=== PATIENT | female | born 1980 | race Caucasian/White ===

== ENCOUNTER → 2019-11-11 15:18 | Outpatient (BNVA) | payer OTHER, SELFPAY | PROVIDERS: PCP Internal Medicine; Referring Provider Internal Medicine; Visit Provider Physician Assistant | DX: K21.9 Gastro-esophageal reflux disease without esophagitis (principal); F12.90 Cannabis use, unspecified, uncomplicated; Z79.899 Other long term (current) drug therapy | CPT/HCPCS: Q3014 ==

== ENCOUNTER → 2019-12-06 15:15 | Outpatient (BNVA) | payer OTHER, SELFPAY | PROVIDERS: PCP Internal Medicine; Referring Provider Internal Medicine; Visit Provider Internal Medicine | DX: Z76.89 Persons encountering health services in other specified circumstances (principal) ==

== ENCOUNTER 2019-12-07 08:05 | Outpatient (REF) | payer OTHER, SELFPAY ==
[2019-12-07 09:56] LABS: MANUAL DIFF FLAG NO
[2019-12-07 10:09] LABS: Basophils Percent Auto 0.3 % (0-2); Eosinophils Absolute Auto 0.1 X10*3/uL (0.0-0.4); Eosinophils Percent Auto 1.5 % (0-4); Hematocrit 38.3 % (37-47); Hemoglobin 13.3 g/dl (12.0-16.0); Imm Gran Abs Auto 0.02 X10*3/uL (0.00-0.03); Imm Gran Pct Auto 0.3 % (0.0-0.4); Lymphocytes Absolute Auto 1.2 X10*3/uL (1.2-4.9); Lymphocytes Percent Auto 20.6 % (20-40); Mean Corpuscular HGB Conc 34.7 g/dl (31.0-35.0); Mean Corpuscular Hemoglobin 30.3 pg (27.0-33.0); Mean Corpuscular Volume 87.2 fL (80-98); Mean Platelet Volume 10.4 fL (9.4-12.3); Monocytes Absolute Auto 0.4 X10*3/uL (0.1-1.2); Neutrophils Absolute Auto 4.3 X10*3/uL (2.0-8.3); Neutrophils Percent Auto 71.3 % (45-73); Platelet Count 188 X10*3/uL (160-400); Red Blood Count 4.39 X10*6/uL (4.20-5.50); Red Cell Distribution Width 12.3 % (11.0-16.0)
[2019-12-07 10:34] LABS: Alanine Aminotransferase 9 U/L (0-31); Albumin Level 4.5 g/dL (3.5-5.0); Alkaline Phosphatase 40 U/L (39-117); Anion Gap 12 (12-20); Aspartate Amino Transferase 12 U/L (5-31); Bilirubin Total 0.6 mg/dL (0.0-1.0); Blood Urea Nitrogen 13 mg/dL (9-16); Carbon Dioxide 27 mmol/L (22-29); Chloride 105 mmol/L (96-108); Cholesterol 151 mg/dL; Estimated Glomerular Filt Rate > 60; Glucose Fasting 98 mg/dL (60-99); HDL Cholesterol 37 mg/dL; LDL Cholesterol Calculated 55 mg/dl; Potassium 4.3 mmol/l (3.3-5.1); Sodium 140 mmol/L (135-145); Total Protein 6.9 g/dL (6.5-8.0); Triglycerides 295 mg/dL
[2019-12-07 10:36] LABS: Calcium 8.9 mg/dL (8.4-10.2)
[2019-12-07 10:55] LABS: T4 Thyroxine 7.7 ug/dL (4.5-12.0); Thyroid Stimulating Hormone 0.65 mIU/mL (0.32-4.0)
[2019-12-07 11:12] LABS: Folate 13.4 ng/mL (> or = 4.0); Vitamin B12 255 pg/mL (200-900)
[2019-12-15 18:17] LABS: HPV mRNA E6/E7 rflx Not Detected (Not Detected)
== END 2019-12-07 08:06 | disposition home or self-care (01) ==
LOC: HO.LAB 08:05
PROVIDERS: Absent Provider Internal Medicine; PCP Internal Medicine; Referring Provider Internal Medicine; Visit Provider Advanced Practice Midwife
DX: Z01.419 Encounter for gynecological examination (general) (routine) without abnormal findings (principal); E28.2 Polycystic ovarian syndrome
CPT/HCPCS: 36415; 80053; 80061; 82607; 82746; 84436; 84443; 85025; 87624; 87625; 88141; 88142

== ENCOUNTER → 2020-01-31 12:25 | Outpatient (BNVA) | payer OTHER, SELFPAY | PROVIDERS: Visit Provider Physician Assistant | DX: Z76.89 Persons encountering health services in other specified circumstances (principal) ==

== ENCOUNTER 2020-04-15 08:25 | Outpatient (REF) | payer OTHER, SELFPAY ==
--- NOTE | ~2020-04-15 | MM_ITS ---
EXAMINATION: MM SCREENING DIGITAL BREAST TOMOSYNTHESIS, BILATERAL CLINICAL INFORMATION: Screening. Asymptomatic. Age 39. No prior breast imaging. No known family history breast cancer. The lifetime risk of breast cancer based on the Tyrer-Cuzick Model is 11%. COMPARISON: None (current study represents initial baseline exam). TECHNIQUE: Digital breast tomosynthesis is performed in both the craniocaudal and mediolateral oblique views along with computer-aided detection (CAD). Synthesized 2D images are generated from the tomosynthesis. FINDINGS: There are scattered areas of fibroglandular density (ACR BI-RADS breast composition Category b). There are no significant masses, abnormal calcifications, or other abnormalities. The axilla and skin contours are unremarkable. MM/MM tomosynthesis screening BI IMPRESSION: No mammographic evidence of malignancy. ASSESSMENT: BI-RADS 1: Negative RECOMMENDATION: Routine annual mammography screening. This patient's information was entered into a reminder system with a target due date for their next mammogram.
== END 2020-04-15 08:26 | disposition home or self-care (01) ==
LOC: HO.MAMMO 08:25
PROVIDERS: Visit Provider Internal Medicine
DX: Z12.31 Encounter for screening mammogram for malignant neoplasm of breast (principal)
CPT/HCPCS: 77063; 77067

== ENCOUNTER → 2020-08-22 08:14 | Outpatient (BNVA) | payer OTHER, SELFPAY | PROVIDERS: Visit Provider Physician Assistant ==

== ENCOUNTER 2020-09-24 16:02 | Emergency (ER) | payer OTHER, SELFPAY ==
--- NOTE | ~2020-09-24 | XR_ITS ---
EXAMINATION: XR FOOT, RIGHT CLINICAL INFORMATION: Contusion to foot and lower ankle. COMPARISON: None TECHNIQUE: AP, lateral, and oblique views of the right foot. A marker has been placed along the anterior mid foot region where patient feels pain. FINDINGS: The bones and soft tissues are normal. No fracture. Alignment is anatomic. Joint spaces are maintained. There is a small retrocalcaneal enthesophyte. XR/XR foot RT min 3V IMPRESSION: Unremarkable right foot except for a small retrocalcaneal enthesophyte.
[2020-09-24 16:05] VITALS: BP 97/76; PULSE 88; RESP 18; TEMP 36.8; O2SAT 97; BMI 32.5
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
== END 2020-09-24 19:17 | disposition home or self-care (01) ==
PROVIDERS: Emergency Provider Emergency Medicine; PCP Internal Medicine
DX: S90.31XA Contusion of right foot, initial encounter (principal); M79.671 Pain in right foot; Y29.XXXA Contact with blunt object, undetermined intent, initial encounter; Y93.9 Activity, unspecified; Y92.9 Unspecified place or not applicable; Y99.9 Unspecified external cause status; Z79.899 Other long term (current) drug therapy
CPT/HCPCS: 73630; 99283

== ENCOUNTER 2021-01-18 09:00 | Day surgery (SDC) | payer OTHER, SELFPAY ==
[2021-01-11 16:04] VITALS: BMI 33.6
--- NOTE | 2021-01-17 10:11 | HO.ANESPROP2 ---
Documented by User: Mellisa Chance NP 01/17/21 10:12 HPI - Anesthesia Eval Consult details Narrative: 40yo F for Colonoscopy PMFSH Active Problems Active Problems: All Active Problems (Updated 01/11/21 @ 16:02 by Marielle Das RN) Annual physical exam (Acute) Hypertriglyceridemia (Acute) Vitamin B12 deficiency (Acute) History of adenomatous polyp of colon (Acute) Obesity (BMI 30-39.9) (Acute) GERD (gastroesophageal reflux disease) (Acute) PCOS (polycystic ovarian syndrome) (Acute) SVT (supraventricular tachycardia) (Acute) Past Medical History Medical History Asthma, allergic Duodenal adenoma Familial adenomatous polyposis GERD (gastroesophageal reflux disease) Migraine with aura Obesity Obesity (BMI 30-39.9) PCOS (polycystic ovarian syndrome) Polyp of duodenum Post-operative nausea and vomiting Splenomegaly SVT (supraventricular tachycardia) Trochanteric bursitis of left hip Uterine fibroid Family History Family History (Updated 08/22/20 @ 08:17 by SARITHA Landis) Father Brain tumor Mother Colon polyp Maternal Uncle Colon polyp Maternal Aunt Colon polyp Myocardial infarct Substance abuse Pancreatitis Father No problems noted. Son No problems noted. Daughter No problems noted. Surgical History Surgical History History of delivery History of colonoscopy Hx of endoscopy Social History Social History (Updated 08/22/20 @ 09:47 by Delmis Salinas PA-C) Alcohol intake: current Alcohol intake frequency: a few times a month Patient Tobacco Use Status: Never used Tobacco Use of substances other than those prescribed or required for medical reasons: No Substance Use Type: Marijuana Are you DNR?: No Advance Directives: No Advance Directives Information Provided: No Advance Directives on File: No Recently lost weight without trying: No Nutrition Risks: No Nutritional Risk Patient : No Current occupational status: 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 Gender identity: Female Meds Allergies Allergy/AdvReac Type Severity Reaction Status Date / Time amoxicillin [AMOXICILLIN] Allergy Severe HIVES Verified 08/22/20 08:15 doxycycline Allergy Unknown Rash Verified 08/22/20 08:15 Home Medications Medication Instructions Recorded Confirmed Last Taken Type cetirizine 10 mg tablet (Zyrtec) 10 mg PO DAILY 12/06/19 01/11/21 Unknown History lansoprazole 30 mg capsule,delayed 30 mg PO DAILY 01/11/21 01/11/21 Unknown History release sucralfate 1 gram tablet 1 g PO BID PRN 01/11/21 01/11/21 Unknown History Exam Exam Date and Time: January 17, 2021 1011 Height,Weight and Vital Signs: Height 5 ft 3 in Weight 86.183 kg Assessment and Plan Assessment Anesthesia Assessment: Chart Reviewed Documented by User: Albert Gifford 01/18/21 09:37 [facility] Past Medical History Medical History Asthma, allergic Duodenal adenoma Familial adenomatous polyposis GERD (gastroesophageal reflux disease) Migraine with aura Obesity Obesity (BMI 30-39.9) PCOS (polycystic ovarian syndrome) Polyp of duodenum Post-operative nausea and vomiting Splenomegaly SVT (supraventricular tachycardia) Trochanteric bursitis of left hip Uterine fibroid Functional capacity: independent ambulation Family History Family History (Updated 08/22/20 @ 08:17 by SARITHA Landis) Father Brain tumor Mother Colon polyp Maternal Uncle Colon polyp Maternal Aunt Colon polyp Myocardial infarct Substance abuse Pancreatitis Father No problems noted. Son No problems noted. Daughter No problems noted. Family history of problems with anesthesia: Yes (Ponv) Surgical History Surgical History History of delivery History of colonoscopy Hx of endoscopy History of Problems with Anesthesia: Yes (Ponv ) Social History Social History (Updated 08/22/20 @ 09:47 by Delmis Salinas PA-C) Alcohol intake: current Alcohol intake frequency: a few times a month Patient Tobacco Use Status: Never used Tobacco Use of substances other than those prescribed or required for medical reasons: No Substance Use Type: Marijuana Are you DNR?: No Advance Directives: No Advance Directives Information Provided: No Advance Directives on File: No Recently lost weight without trying: No Nutrition Risks: No Nutritional Risk Patient : No Current occupational status: 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 Gender identity: Female Meds Allergies Allergy/AdvReac Type Severity Reaction Status Date / Time amoxicillin [AMOXICILLIN] Allergy Severe HIVES Verified 08/22/20 08:15 doxycycline Allergy Unknown Rash Verified 08/22/20 08:15 Home Medications Medication Instructions Recorded Confirmed Last Taken Type cetirizine 10 mg tablet (Zyrtec) 10 mg PO DAILY 12/06/19 01/11/21 Unknown History lansoprazole 30 mg capsule,delayed 30 mg PO DAILY 01/11/21 01/11/21 Unknown History release sucralfate 1 gram tablet 1 g PO BID PRN 01/11/21 01/11/21 Unknown History Exam Airway Mallampati Class: III TM Dist: >3cm Neck ROM: Full Heart: rrr Lungs: bl breath sounds Assessment and Plan Final Anesthetic Review Family History of Problems with Anesthesia: Yes (Ponv) History of Problems with Anesthesia: Yes (Ponv ) NPO: Yes ASA Class: II Final Preanesthetic Review: Meds/Lucrecia Chart Reviewed Patient Risk: Intermediate Procedure Risk: Intermediate Anesthetic Plan Anesthetic Plan: MAC: Disposition: Standard PACU
--- NOTE | 2021-01-18 09:09 | MHC.SHP ---
Pre-Procedural Eval Section A Date of Service: 01/18/21 Section B Chief Complaint: hx of colonic polyps Relevant Family History (Specify if Yes): Yes Relevant Social History: Other (specify) (THC) Present Medications: see Short Stay Collaborative assessment Medical History: Significant History (Asthma, allergic Duodenal adenoma Familial adenomatous polyposis GERD (gastroesophageal reflux disease) Migraine with aura Obesity Obesity (BMI 30-39.9) PCOS (polycystic ovarian syndrome) Polyp of duodenum Post-operative nausea and vomiting Splenomegaly SVT (supraventricular tachycardia) Trochanteri) History of Previous Operations: Relevant previous surgery/procedure and date(s) (History of delivery History of colonoscopy Hx of endoscopy) Allergies: Allergies Allergy/AdvReac Type Severity Reaction Status Date / Time amoxicillin [AMOXICILLIN] Allergy Severe HIVES Verified 08/22/20 08:15 doxycycline Allergy Unknown Rash Verified 08/22/20 08:15 Review of Systems Sugical H&P ROS: Negative: Constitution, Cardiovascular, Respiratory, Neurological, Psychiatric, Hem-Onc, Allergic/Immunologic, Gastrointestinal, Genitourinary, Musculoskeletal, Integumentary, Endocrine and Eyes/Ears/Nose/Throat Exam Surgical H&P Exam: Normal: HEENT, Normal: Heart, Normal: Lungs, Normal: Extremities, Normal: Abdomen, Normal: Skin and Normal: Neurological Plan Diagnosis/Plan: Unchanged I have reviewed the history and physical and performed a pertinent physical examination on my patient. No changes have occurred unless specified.
[2021-01-18 09:32] VITALS: BP 125/77; PULSE 82; RESP 16; TEMP 36.1; O2SAT 96
[2021-01-18] MEDS: Lactated Ringers 1,000 ML 100 ML IVCONT (09:37)
--- NOTE | 2021-01-18 09:48 | P.BOP_ITS ---
Brief Operative Note Date of Service: 01/18/21 Pre-op diagnosis: hx of polyps Post-op diagnosis: same Procedure: see op note Surgeon: Valentin Rogers MD Anesthesia: MAC Was an Tray Drier Operator used for this Procedure?: No Estimated blood loss (mL): 0 Condition: stable Disposition: PACU
--- NOTE | 2021-01-18 09:48 | W.PM.OPN ---
Operative Note Operative Note Date of Service: 01/18/21 Narrative: Operative Information Procedure Description: Colonoscopy COLONOSCOPY Instrument: Olympus variable stiffness adult scope 190L Colonoscopy Monitoring: Vital signs and clinical assessment, continuous EKG monitoring, Pulse oximetry, Carbon Dioxide monitoring and blood pressure monitoring were done throughout the procedure. Colon withdrawal time was 13 minutes. Procedure: The patient was placed in the left lateral decubitis position and pre-procedure medications were administered. After a digital rectal examination of the ano-rectum, the video colonoscope was inserted into the rectum and advanced through the colon to the cecum/TI. The colonoscope was slowly withdrawn in a retrograde panoramic fashion and the colon mucosa was carefully examined including a retroflexed view of the rectum. Findings and interventions are described below. Procedure Difficulty: easy Findings: Terminal Ileum-normal Cecum: 7-8 mm sessile polyp removed with snare right sided retroflexion was normal Ascending Colon: normal Transverse Colon -normal Descending Colon:normal Sigmoid Colon: normal Rectum: Retroflexion with small internal hemorrhoids, grade I Anorectum - normal Colon preparation: [place] Bowel Preparation Scale Right colon; 2 Transverse colon: 2 Left colon; 2 (0 = Unprepared colon segment with mucosa not seen due to solid stool that cannot be cleared. 1 = Portion of mucosa of the colon segment seen, but other areas of the colon segment not well seen due to staining, residual stool and/or opaque liquid. 2 = Minor amount of residual staining, small fragments of stool and/or opaque liquid, but mucosa of colon segment seen well. 3 = Entire mucosa of colon segment seen well with no residual staining, small fragments of stool or opaque liquid) Impression and Post Procedure Diagnosis: polyp internal hemorrhoids Plan: High fiber diet leaflet Avoid straining at stool, epsom salts and sitz bath, anusol supps or cream Repeat Colonoscopy in 2-3 years due to higher risk with pos FH of polyps or earlier if clinically indicated, would repeat EGD same time due to hx of duodenal adenoma Above findings were reviewed with the patient and relevant handouts were provided if indicated.
[2021-01-18 09:52] LABS: UPreg QC Valid YES; Urine Pregnancy NEGATIVE (NEGATIVE)
[2021-01-18 10:31] VITALS: BP 108/62; PULSE 87; RESP 18; TEMP 36.6; O2SAT 97
[2021-01-18 10:46] VITALS: BP 106/60; PULSE 77; RESP 18; TEMP 36.9; O2SAT 99
== END 2021-01-18 11:25 | disposition home or self-care (01) ==
PROVIDERS: Nurse Practitioner; PCP Internal Medicine; Visit Provider Internal Medicine Gastroenterology
PROC: 0DJD8ZZ Inspection of Lower Intestinal Tract, Via Natural or Artificial Opening Endoscopic (ICD-10-PCS; CPT 45378; principal; 2021-01-18 10:10)
DX: Z12.11 Encounter for screening for malignant neoplasm of colon (principal); Z86.010 Personal history of colon polyps; Z83.71 Family history of colonic polyps; D12.0 Benign neoplasm of cecum; K64.0 First degree hemorrhoids; K21.9 Gastro-esophageal reflux disease without esophagitis; E66.9 Obesity, unspecified; I47.1 Supraventricular tachycardia; J45.909 Unspecified asthma, uncomplicated; Z79.899 Other long term (current) drug therapy; Z88.0 Allergy status to penicillin; Z88.1 Allergy status to other antibiotic agents
CPT/HCPCS: 45385; 81025; 88305

== ENCOUNTER 2021-05-03 09:27 | Outpatient (REF) | payer OTHER, SELFPAY ==
[2021-05-03 16:37] LABS: MANUAL DIFF FLAG NO
[2021-05-03 16:57] LABS: Basophils Percent Auto 0.3 % (0-2); Eosinophils Absolute Auto 0.1 X10*3/uL (0.0-0.4); Hematocrit 36.6 % (37.0-47.0); Hemoglobin 12.4 g/dl (12.0-16.0); Imm Gran Abs Auto 0.01 X10*3/uL (0.00-0.03); Imm Gran Pct Auto 0.1 % (0.0-0.4); Lymphocytes Absolute Auto 1.7 X10*3/uL (1.2-4.9); Lymphocytes Percent Auto 24.2 % (20-40); Mean Corpuscular HGB Conc 33.9 g/dl (31.0-35.0); Mean Corpuscular Hemoglobin 28.6 pg (27.0-33.0); Mean Corpuscular Volume 84.3 fL (80.0-98.0); Mean Platelet Volume 10.3 fL (9.4-12.3); Monocytes Absolute Auto 0.5 X10*3/uL (0.1-1.2); Monocytes Percent Auto 6.5 % (2-11); Neutrophils Absolute Auto 4.8 x10*3/uL (2.0-8.3); Neutrophils Percent Auto 67.9 % (45-73); Platelet Count 194 X10*3/uL (160-400); Red Blood Count 4.34 X10*6/uL (4.20-5.50); Red Cell Distribution Width 13.4 % (11.0-16.0)
[2021-05-03 17:34] LABS: Alanine Aminotransferase 9 U/L (0-31); Albumin Level 4.6 g/dL (3.5-5.0); Alkaline Phosphatase 43 U/L (39-117); Anion Gap 14 (12-20); Aspartate Amino Transferase 13 U/L (5-31); Bilirubin Total 0.5 mg/dL (0.0-1.0); Blood Urea Nitrogen 11 mg/dL (9-16); Calcium 9.9 mg/dL (8.4-10.2); Carbon Dioxide 24 mmol/L (22-29); Chloride 104 mmol/L (96-108); Cholesterol 149 mg/dL; Estimated Glomerular Filt Rate > 60; Glucose Random 95 mg/dL (60-115); HDL Cholesterol 38 mg/dL; LDL Cholesterol Calculated 46 mg/dl; Potassium 4.2 mmol/L (3.3-5.1); Sodium 138 mmol/L (135-145); Total Protein 7.3 g/dL (6.5-8.0); Triglycerides 329 mg/dL
[2021-05-03 17:49] LABS: Free T4 (Free Thyroxine) 1.01 ng/dL (0.71-1.85); Vitamin D 25-OH Total 33.1 ng/mL (>30)
[2021-05-03 17:54] LABS: Thyroid Stimulating Hormone 0.99 uIU/mL (0.32-4.0)
[2021-05-03 18:05] LABS: Vitamin B12 1097 pg/mL (200-900)
[2021-05-03 21:42] LABS: CT PCR NOT DETECTED (Not Detect.); NG PCR NOT DETECTED (Not Detect.)
[2021-05-04 09:00] LABS: BV Int Neg Control Negative (Negative); BV Int Pos Control Positive (Positive)
[2021-05-08 14:52] LABS: Parietal Cell Antibody <=20.0 Unit (<=20.0)
[2021-05-09 23:26] LABS: Intrinsic Factor Antibodies Negative (Negative)
== END 2021-05-03 09:28 | disposition home or self-care (01) ==
LOC: HO.LAB 09:27
PROVIDERS: Internal Medicine; Visit Provider Advanced Practice Midwife
DX: N93.9 Abnormal uterine and vaginal bleeding, unspecified (principal); N92.1 Excessive and frequent menstruation with irregular cycle; E78.1 Pure hyperglyceridemia; E78.00 Pure hypercholesterolemia, unspecified
CPT/HCPCS: 36415; 80053; 80061; 82306; 82607; 82746; 83516; 84439; 84443; 85025; 86340; 87480; 87491; 87510; 87591; 87660

== ENCOUNTER 2021-05-03 09:43 | Outpatient (REF) | payer OTHER, SELFPAY ==
--- NOTE | ~2021-05-03 | MM_ITS ---
EXAMINATION: MM SCREENING DIGITAL BREAST TOMOSYNTHESIS, BILATERAL CLINICAL INFORMATION: Screening. Asymptomatic. The lifetime risk of breast cancer based on the Tyrer-Cuzick Model is 10.6%. COMPARISON: Mammography: April 15, 2020 TECHNIQUE: Digital breast tomosynthesis is performed in both the craniocaudal and mediolateral oblique views along with computer-aided detection (CAD). Synthesized 2D images are generated from the tomosynthesis. FINDINGS: There are scattered areas of fibroglandular density (ACR BI-RADS breast composition Category b). There are no significant masses, abnormal calcifications, or other abnormalities. MM/MM tomosynthesis screening BI IMPRESSION: There are no significant changes from prior study. ASSESSMENT: BI-RADS 1: Negative RECOMMENDATION: Routine annual mammography screening. This patient's information was entered into a reminder system with a target due date for their next mammogram.
== END 2021-05-03 09:44 | disposition home or self-care (01) ==
LOC: HO.MAMMO 09:43
PROVIDERS: Absent Provider Advanced Practice Midwife; PCP Internal Medicine; Visit Provider Internal Medicine
DX: Z12.31 Encounter for screening mammogram for malignant neoplasm of breast (principal); N93.9 Abnormal uterine and vaginal bleeding, unspecified
CPT/HCPCS: 77063; 77067; 81025

== ENCOUNTER 2021-05-24 15:53 | Outpatient (REF) | payer OTHER, SELFPAY ==
--- NOTE | ~2021-05-24 | US_ITS ---
EXAMINATION: US PELVIS CLINICAL INFORMATION: Abnormal uterine and vaginal bleeding COMPARISON: CT of the abdomen and pelvis 09/22/2019 and pelvic ultrasound 08/28/2015 TECHNIQUE: Ultrasound of the pelvis is performed using both transabdominal and transvaginal transducers along with Doppler. Transvaginal imaging is performed due to inadequate visualization transabdominally. FINDINGS: Uterus: The uterus is retroverted and measures 9.1 x 4.7 x 6.5 cm. The double wall endometrial thickness is 9 mm. The uterus is smooth in contour and has normal myometrial echogenicity. No visible fibroid. Adnexa: Both ovaries are visualized. There is normal color flow to the adnexa. There is no ovarian torsion. There is no pelvic ascites or fluid collection. Right ovary measures 3.6 x 2.6 x 3.1 cm. There is a dominant follicle in the right ovary measuring up to 1.8 cm. Left ovary measures 2.9 x 1.9 x 2 cm. US/US pelvic and transvaginal IMPRESSION: Normal pelvic ultrasound.
== END 2021-05-24 15:54 | disposition home or self-care (01) ==
LOC: HO.US 15:53
PROVIDERS: Visit Provider Advanced Practice Midwife
DX: N93.9 Abnormal uterine and vaginal bleeding, unspecified (principal)
CPT/HCPCS: 76830; 76856

== ENCOUNTER → 2021-06-01 14:54 | Outpatient (BNVA) | payer OTHER, SELFPAY | PROVIDERS: Visit Provider Advanced Practice Midwife | DX: Z13.89 Encounter for screening for other disorder (principal) ==

== ENCOUNTER 2022-08-21 12:57 | Outpatient (AMB) | payer OTHER, SELFPAY ==
--- NOTE | 2022-08-21 12:58 | MHC.OFFVIS ---
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 Scribed for KAMINI Lamb by Maliha De La Paz vp medical, on 08/21/2022 at 1:22 pm EST. Measurement And Verification Engineer: Measurement And Verification Engineer Present ([place]) Allergies amoxicillin [AMOXICILLIN] Allergy (Severe, Verified 08/21/22 12:59) HIVES doxycycline Allergy (Unknown, Verified 08/21/22 12:59) Rash Is last menstrual period known: Yes Last menstrual period: 07/29/22 HPI HPI Comments History of Present Illness Details She is presenting for annual exam. States she spotting on occasion during ovulation. Patient admits she tries to eat a healthy diet including Calcium and Vitamin D. She stays active with exercise. Currently sexually active. Denies vaginal itching and irritation. Denies family hx of breast, colon and ovarian cancer. Last pap smear 12/07/19 Last mammogram 05/03/21 UTD on colonoscopy. [facility] Medical History Asthma, allergic Duodenal adenoma Familial adenomatous polyposis GERD (gastroesophageal reflux disease) Migraine with aura Obesity Obesity (BMI 30-39.9) PCOS (polycystic ovarian syndrome) Polyp of duodenum Post-operative nausea and vomiting Splenomegaly SVT (supraventricular tachycardia) Trochanteric bursitis of left hip Surgical History History of delivery History of colonoscopy Hx of endoscopy Family History Father Brain tumor Mother Colon polyp Maternal Uncle Colon polyp Maternal Aunt Colon polyp Myocardial infarct Substance abuse Pancreatitis Father No problems noted. Son No problems noted. Daughter No problems noted. 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 Sexual orientation: Straight/Heterosexual Gender identity: Female Cognitive needs: No Hearing needs: No Vision needs: No Female Reproductive History Menstrual Age of Menarche: 12 Duration of menses: 6-7 days Date of last menstrual period: 07/29/22 control method: permanent sterilization Permanent Sterilization: Vasectomy Total pregnancies: 2 Full term: 2 Number of Living Children: 2 Date of last pap smear: 12/07/19 (neg pap and hpv) Date of Mammogram: 05/03/21 Physical Exam Vital Signs: Last Vital Signs BP 120/76 08/21/22 12:59 BMI result Body Mass Index 35.4 Const General: cooperative, healthy appearing, no acute distress, well developed and alert Orientation/consciousness: patient oriented x3 HEENT Head: Yes normal to inspection Eyes General: appearance normal, both eyes and all related structures Neck Neck: Yes normal visual inspection Thyroid: Thyroid normal Chest Chest palpation & inspection: normal inspection of the chest Breast/axilla inspection: normal inspection of the breasts (no puckering, dimpling, peau de orange, retraction, discharge, masses) Breast/axilla palpation: normal palpation of the breasts Resp Effort & Inspection: normal respiratory effort GI Inspection: Yes normal to inspection Palpation (GI): Soft to palpation (to palpation) Rectal Exam - Female: deferred General: Yes bladder normal to inspection External Female Exam: normal external appearance and normal appearance of the urethra Speculum Exam - Vagina: normal appearance of the vagina, normal palpation and normal vaginal discharge Speculum Exam - Cervix: normal appearance of the cervix and normal palpation Bimanual exam- vagina & uterus: normal palpation and normal palpation Bimanual Exam- Adnexa, other: normal adnexae and no masses Skin General skin exam: no rashes or lesions noted Neuro General: patient oriented x3 Cognition (Neuro): normal cognition Extrem General: Yes normal to inspection Psych Attitude: cooperative Thought process: Normal thought process present Thought content: Normal thought content present Assessment & Plan Assessment & Plan (1) Encounter for well woman exam: Code(s): Z01.419 - Encounter for gynecological examination (general) (routine) without abnormal findings Plan: Discussed: Current recommendations for pap smears per ASCCP guidelines Breast awareness and periodic self breast exams. Maintaining a healthy lifestyle including a well balanced diet and routine exercise. Mammogram ordered. Counseled re: perimenopause vs menopause. Monitor periods, report any unscheduled bleeding, bleeding episodes less than 21 days apart or heavy prolonged menstrual bleeding. All of her questions and concerns were addressed to the best of my ability. RTO in one year for AG. Orders: Orders MM tomosynthesis screening BI Today Z12.31 - Encounter for screening mammogram for malignant neoplasm of breast Coding Level of Care Code Est Pt Prev Care 40-64y(64874) Diagnoses Encounter for well woman exam Z01.419
[2022-08-21 12:59] VITALS: BP 120/76; BMI 35.4
== END 2022-08-21 14:13 | disposition home or self-care (01) ==
LOC: HO.HWS 12:57
PROVIDERS: PCP Internal Medicine; Visit Provider Advanced Practice Midwife
DX: Z01.419 Encounter for gynecological examination (general) (routine) without abnormal findings (principal)
CPT/HCPCS: 99396

== ENCOUNTER → 2022-08-21 12:57 | Outpatient (BNVA) | payer OTHER, SELFPAY | PROVIDERS: PCP Internal Medicine; Visit Provider Advanced Practice Midwife ==

== ENCOUNTER 2022-08-26 15:46 | Outpatient (REF) | payer OTHER, SELFPAY ==
--- NOTE | ~2022-08-26 | MM_ITS ---
EXAMINATION: MM SCREENING DIGITAL BREAST TOMOSYNTHESIS, BILATERAL CLINICAL INFORMATION: Screening. Asymptomatic. The lifetime risk of breast cancer based on the Tyrer-Cuzick Model is 11%. COMPARISON: Mammography: This study is compared with prior exams dating back to 2020. TECHNIQUE: Digital breast tomosynthesis is performed in both the craniocaudal and mediolateral oblique views along with computer-aided detection (CAD). Synthesized 2D images are generated from the tomosynthesis. FINDINGS: There are scattered areas of fibroglandular density (ACR BI-RADS breast composition Category b). There are no significant masses, abnormal calcifications, or other abnormalities. MM/MM tomosynthesis screening BI IMPRESSION: No mammographic evidence of malignancy. ASSESSMENT: BI-RADS BI-RADS 1 - Negative RECOMMENDATION: Routine annual mammography screening. 1 year F/U This examination should not preclude the clinical evaluation of a suspicious palpable abnormality. This patient's information was entered into a reminder system with a target due date for their next mammogram.
== END 2022-08-26 15:47 | disposition home or self-care (01) ==
LOC: HO.MAMMO 15:46
PROVIDERS: PCP Internal Medicine; Visit Provider Advanced Practice Midwife
DX: Z12.31 Encounter for screening mammogram for malignant neoplasm of breast (principal)
CPT/HCPCS: 77063; 77067

== ENCOUNTER → 2022-08-26 16:00 | Outpatient (BNV) | payer OTHER, SELFPAY | PROVIDERS: PCP Internal Medicine; Visit Provider Radiology Diagnostic Radiology | DX: Z12.31 Encounter for screening mammogram for malignant neoplasm of breast (principal) | CPT/HCPCS: 77063; 77067 ==

== ENCOUNTER 2022-10-30 16:10 | Outpatient (AMB) | payer OTHER, SELFPAY ==
--- NOTE | 2022-10-30 16:21 | MHC.PC.OV ---
Vital Signs 10/30/22 16:24 Height 5 ft 3 in Weight 198 lb BMI 35.1 BP 110/82 Blood Pressure Location Lt brachial Position Sitting Pulse 82 Pulse Source Pulse Oximeter Temp Source Skin Pulse Oximetry (%) 98 Oxygen Delivery Method Room Air Intake Visit Reasons: Annual Exam Allergies amoxicillin [AMOXICILLIN] Allergy (Severe, Verified 10/30/22 16:45) HIVES doxycycline Allergy (Unknown, Verified 10/30/22 16:45) Rash Medication List - Last Reconciled 10/30/22 by RITA Cortes cyanocobalamin (vitamin B-12) 1,000 mcg PO DAILY lansoprazole 30 mg PO DAILY loratadine (Claritin) 10 mg PO DAILY metoprolol succinate ER 25 mg PO DAILY 90 days scopolamine base (Transderm-Scop) 1 patch transdermal Q3D PRN Tobacco use date assessed: 10/30/22 Dental Screening Dental Screen Date: 10/30/22 Did you have a dental visit in the last 12 months?: Yes Did you have a dental problem in the last 6 months where you did not have access to dental care?: No Was dental information given to patient?: Patient has dentist HPI Annual Exam HPI Details Patient is a 41-year-old female who presents today for physical exam. Patient of Dr. Paige. Medical history significant for SVT-on metoprolol, PCOS, GERD, obesity, hypertriglyceridemia. Pap smear normal 11/2021 with [facility]. Mammogram normal 08/2022. Up-to-date with tetanus. Colonoscopy 01/2021 which showed tubular adenoma repeat in 3 years, was done by Dr. Rogers. Patient reports that she had cold, she reports runny nose, she was sneezing and her lungs hurt, negative COVID test, reports congestion. Reports sinuses pain. No shortness of breath or cough. Has allergic asthma. Help is not needed with alcohol cessation. [facility] Medical History (Updated 10/30/22 @ 16:58 by RITA Cortes) Asthma, allergic Post-operative nausea and vomiting Duodenal adenoma Obesity (BMI 30-39.9) Trochanteric bursitis of left hip GERD (gastroesophageal reflux disease) Familial adenomatous polyposis Splenomegaly Migraine with aura PCOS (polycystic ovarian syndrome) Polyp of duodenum Obesity SVT (supraventricular tachycardia) Surgical History History of delivery Hx of endoscopy History of colonoscopy Family History Father Brain tumor Mother Colon polyp Maternal Uncle Colon polyp Maternal Aunt Colon polyp Myocardial infarct Substance abuse Pancreatitis Father No problems noted. Son No problems noted. Daughter No problems noted. 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 1. Little interest or pleasure in doing things: not at all 2. Feeling down, depressed, or hopeless: not at all 3. Trouble falling or staying asleep, or sleeping too much: not at all 4. Feeling tired or having little energy: not at all 5. Poor appetite or overeating: not at all 6. Feeling bad about yourself - or that you are a failure or have let yourself or your family down: not at all 7. Trouble concentrating on things, such as reading the newspaper or watching television: not at all 8. Moving or speaking so slowly that other people could have noticed. Or the opposite - being so fidgety or restless that you have been moving around a lot more than usual: not at all 9. Thoughts that you would be better off or of hurting yourself in some way: not at all Total score: 0 Depression Screening Interpretation: Negative 43612 - PHQ-9 Billing: Yes Source: Developed by Drs. Javier Fontenot, Sarah Church, Jeffrey Ortiz and colleagues, with an educational surekha from [employer]. Thrive Questionnaire Date Thrive assessed: 07/02/21 AUDIT C Alcohol Use Questionnaire (AUDIT-C) 1. How often do you have a drink containing alcohol?: 2-3 times a week 2. How many drinks containing alcohol do you have on a typical day when you are drinking?: 3 or 4 3. How often do you have six or more drinks on one occasion?: Never Total Score: 4 Score Reviewed/Action Taken: Yes TI-7 AMB Questionnaire TI-7 Date TI - 7 assessed: 10/30/22 Feeling nervous, anxious, or on edge: 0 = Not at all Not being able to stop or control worryin = Not at all Worrying too much about different things: 0 = Not at all Trouble relaxin = Not at all Being so restless that it is hard to sit still: 0 = Not at all Becoming easily annoyed or irritable: 0 = Not at all Feeling afraid as if something awful might happen: 0 = Not at all Total TI-7 score (0-4 normal; 5-9 mild; 10-14 moderate; 15-21 severe): 0 Source: Developed by Drs. Javier Fontenot, Sarah Church, Jeffrey Ortiz and colleagues, with an educational surekha from [employer]. TI-7 Assessment Billing TI-7 Assessment Tool: TI-7 Assessment 60347 Review of Systems Const Denies body aches, Denies chills, Denies fever(s) and Denies headache(s) Eyes Denies change in vision ENT Denies dizziness, Denies otalgia, Denies headache(s), Reports nasal congestion, Denies nasal discharge, Reports sinus pain and Denies sore throat Card Denies chest pain, Denies edema, Denies lightheadedness and Denies dyspnea Resp Denies cough, Denies dyspnea and Denies wheezing GI Denies abdominal pain Denies dysuria Musc Denies myalgias, Denies arthralgias, Denies joint swelling, Denies numbness and Denies tingling Skin/Breast Denies lesions, Denies rash and Denies unusual bruising Neuro Denies dizziness, Denies headache(s), Denies numbness and Denies tingling Aller/Immun Denies wheezing Physical exam (Primary Care) Vital Signs: Last Vital Signs Pulse 82 10/30/22 16:24 BP 110/82 10/30/22 16:24 Pulse Ox 98 10/30/22 16:24 Oxygen Delivery Method Room Air 10/30/22 16:24 BMI result Body Mass Index 35.1 Tobacco/Smoking Status: Tobacco use Status Tobacco use date assessed 10/30/22 10/30/22 16:28 Patient Tobacco Use Status Never used Tobacco 10/30/22 16:21 e-Cigarette/Vaping Use Never Used 10/30/22 16:21 PHQ-9: PHQ-9 Score PHQ-9: Total score 0 10/30/22 16:28 Depression Screening Interpretation: Negative Thrive Assessment: Date of Thrive Assessment Date Thrive assessed 07/02/21 10/30/22 16:21 Const General: cooperative and no acute distress Orientation/consciousness: patient oriented x3 HENMT Head: Yes normocephalic and Yes atraumatic Ears: TM's normal bilaterally Face and sinus: Yes sinuses nontender Mouth: oropharynx normal and moist mucous membranes Throat: Yes posterior oropharynx normal Eyes General: appearance normal, both eyes and all related structures Pupils: Equal, round and reactive pupils present EOM: EOMs intact bilaterally Neck Neck: Yes normal visual inspection, Yes full ROM and Yes no lymphadenopathy Thyroid: Thyroid normal Resp Effort & Inspection: normal respiratory effort and able to speak in complete sentences Auscultation: clear to auscultation bilaterally, no crackles, no rales, no rhonchi and no wheezes Cardio Rate: regular rate Rhythm: regular rhythm Heart sounds: S1 normal heart sound present, S2 normal heart sound present and no murmurs GI Palpation (GI): Soft to palpation, not firm, nontender, no guarding, not rigid and no hepatosplenomegaly Auscultation: normal bowel sounds General: No CVA tenderness Back/Spine/Pelvis Back: No CVA tenderness Skin General skin exam: no rashes or lesions noted Neuro General: patient oriented x3 Cranial nerves: Yes Equal, round and reactive pupils present Gait exam (Neuro): Normal gait present Extrem General: Yes full ROM and No edema Assessment and Plan Assessment & Plan (1) Asthma, allergic: Code(s): J45.909 - Unspecified asthma, uncomplicated Plan: Will provide patient with albuterol inhaler p.r.n. (2) Sinusitis: Code(s): J32.9 - Chronic sinusitis, unspecified Plan: Start Z-Samuel Will provide patient with Flonase nasal spray, continue Claritin (3) Annual physical exam: Code(s): Z00.00 - Encounter for general adult medical examination without abnormal findings Plan: Repeat in 1 year (4) Hypertriglyceridemia: Code(s): E78.1 - Pure hyperglyceridemia Plan: Low-cholesterol/low carbohydrate diets Blood work ordered (5) GERD (gastroesophageal reflux disease): Code(s): K21.9 - Gastro-esophageal reflux disease without esophagitis Qualifiers: Esophagitis presence: without esophagitis Qualified Code(s): K21.9 - Gastro-esophageal reflux disease without esophagitis Plan: Continue lansoprazole Avoid GERD trigger foods (6) Obesity (BMI 30-39.9): Code(s): E66.9 - Obesity, unspecified Plan: Healthy food choices and exercise as tolerated (7) SVT (supraventricular tachycardia): Code(s): I47.1 - Supraventricular tachycardia Plan: On metoprolol Plan Up-to-date with dental and eye exams Orders: Orders TSH reflex Free T4 Today Z00.00 - Encounter for general adult medical examination without abnormal findings Comprehensive [place]. Panel Fast Today Z00.00 - Encounter for general adult medical examination without abnormal findings Complete Blood Count Auto Diff Today Z00.00 - Encounter for general adult medical examination without abnormal findings Vitamin D 25-OH Total Today Z00.00 - Encounter for general adult medical examination without abnormal findings Vitamin B12 and Folate Today Z00.00 - Encounter for general adult medical examination without abnormal findings Lipid Panel Today Z00.00 - Encounter for general adult medical examination without abnormal findings Medications: New fluticasone propionate 50 mcg/actuation (Flonase Allergy Relief) administer into each nostril 1 spray intranasal DAILY 14 days 100 mL 0RF J32.9 - Chronic sinusitis, unspecified azithromycin take 500 mg today (day 1), then 250 mg for 4 days (days 2-5) PO 6 tabs 0RF J32.9 - Chronic sinusitis, unspecified albuterol sulfate 90 mcg/actuation (Ventolin HFA) 2 puffs inhalation Q4-6H PRN 8.5 grams 0RF shortness of breath or wheezing J45.909 - Unspecified asthma, uncomplicated Coding Level of Care Code Est Pt Prev Care 40-64y(50391) Diagnoses Asthma, allergic J45.909 Sinusitis J32.9 Annual physical exam Z00.00 Hypertriglyceridemia E78.1 Gastroesophageal reflux disease without esophagitis K21.9 Esophagitis presence: without esophagitis Obesity (BMI 30-39.9) E66.9 SVT (supraventricular tachycardia) I47.1 Additional Codes TI-7 Assessment Billing - TI-7 Assessment Tool: TI-7 Assessment 59687 ([id number])
[2022-10-30 16:24] VITALS: BP 110/82; PULSE 82; O2SAT 98; BMI 35.1
== END 2022-10-30 17:02 | disposition home or self-care (01) ==
PROVIDERS: PCP Internal Medicine; Visit Provider Nurse Practitioner Family
DX: Z00.00 Encounter for general adult medical examination without abnormal findings (principal); J45.909 Unspecified asthma, uncomplicated; K21.9 Gastro-esophageal reflux disease without esophagitis; I47.1 Supraventricular tachycardia; J32.9 Chronic sinusitis, unspecified; E78.1 Pure hyperglyceridemia; E66.9 Obesity, unspecified
CPT/HCPCS: 99396

== ENCOUNTER 2023-01-24 14:43 | Outpatient (AMB) | payer OTHER, SELFPAY ==
--- NOTE | 2023-01-24 14:43 | A.OFFPC_ITS ---
Intake Visit Reasons: Sinus Pressure Intake Note: pt states frequent sinus infection Allergies amoxicillin [AMOXICILLIN] Allergy (Severe, Verified 01/24/23 15:11) HIVES doxycycline Allergy (Unknown, Verified 01/24/23 15:11) Rash Medication List - Last Reconciled 01/24/23 by RITA Cortes albuterol sulfate 90 mcg/actuation (Ventolin HFA) 2 puffs inhalation Q4-6H PRN cyanocobalamin (vitamin B-12) 1,000 mcg PO DAILY fluticasone propionate 50 mcg/actuation (Flonase Allergy Relief) 1 spray intranasal DAILY 14 days lansoprazole 30 mg PO DAILY loratadine (Claritin) 10 mg PO DAILY metoprolol succinate ER 25 mg PO DAILY 90 days scopolamine base (Transderm-Scop) 1 patch transdermal Q3D PRN Tobacco use date assessed: 01/24/23 HPI Sinus Pressure HPI Details This is a telehealth visit and patient was verified by name and date of . Patient of Dr. Paige. Patient is a 42-year-old female who presents today with sinus pain for the past 1 week with no improvement. Patient reports nasal congestion, sinus pain, postnasal drip. She reports using [id number] treatments with no improvem ent. No fever or chills. No shortness of breath or chest pain. [facility] Medical History Asthma, allergic Post-operative nausea and vomiting Duodenal adenoma Obesity (BMI 30-39.9) Trochanteric bursitis of left hip GERD (gastroesophageal reflux disease) Familial adenomatous polyposis Splenomegaly Migraine with aura PCOS (polycystic ovarian syndrome) Polyp of duodenum Obesity SVT (supraventricular tachycardia) Surgical History History of delivery Hx of endoscopy History of colonoscopy Family History Father Brain tumor Mother Colon polyp Maternal Uncle Colon polyp Maternal Aunt Colon polyp Myocardial infarct Substance abuse Pancreatitis Father No problems noted. Son No problems noted. Daughter No problems noted. 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 How often do you have a drink containing alcohol?: 2-3 times a week 2. How many drinks containing alcohol do you have on a typical day when you are drinking?: 3 or 4 3. How often do you have six or more drinks on one occasion?: Never Total Score: 4 Score Reviewed/Action Taken: Yes TI-7 AMB Questionnaire TI-7 Date TI - 7 assessed: 10/30/22 Source: Developed by Drs. Javier Fontenot, Sarah Church, Jeffrey Ortiz and colleagues, with an educational surekha from [employer] [facility] [employer] [facility]. Review of Systems Const Denies body aches, Denies chills, Denies fever(s) and Denies headache(s) ENT Denies dizziness, Denies otalgia, Denies headache(s), Reports nasal congestion, Denies nasal discharge, Reports post nasal drip, Reports sinus pain, Reports sinus pressure and Denies sore throat Card Denies chest pain, Denies edema, Denies lightheadedness and Denies dyspnea Resp Denies cough, Denies dyspnea and Denies wheezing GI Denies abdominal pain Musc Denies myalgias Skin/Breast Denies rash Neuro Denies dizziness and Denies headache(s) Aller/Immun Denies wheezing Physical exam (Primary Care) Tobacco/Smoking Status: Tobacco use Status Tobacco use date assessed 01/24/23 01/24/23 14:45 Patient Tobacco Use Status Never used Tobacco 01/24/23 14:43 e-Cigarette/Vaping Use Never Used 01/24/23 14:43 Thrive Assessment: Date of Thrive Assessment Date Thrive assessed 07/02/21 01/24/23 14:43 Const Other: Telehealth visit unable to obtain physical exam Speech normal Telehealth Telehealth Location of provider rendering services: practice address Location of patient: address on file Patient Identification confirmed using: Name, : Yes Telehealth method: voice only (iphone) Patient verbally consented to treatment: Yes Patient verbally consented to billing insurance company: Yes Patient informed of any privacy concerns related to visit: Yes Minutes spent on Phone/Video with Pt.: 3 Assessment and Plan Assessment & Plan (1) Sinusitis: Code(s): J32.9 - Chronic sinusitis, unspecified Plan: Start Z-Samuel Continue Flonase nasal spray daily Follow-up if no improvement after finishing treatment Encouraged supportive care Medications: New azithromycin take 500 mg today (day 1), then 250 mg for 4 days (days 2-5) PO 6 tabs 0RF J32.9 - Chronic sinusitis, unspecified Coding Level of Care Code Tele Est Pt Level 3 (33413) Diagnoses Sinusitis J32.9
== END 2023-01-24 15:27 | disposition home or self-care (01) ==
LOC: HO.HMGH 14:43
PROVIDERS: PCP Internal Medicine; Visit Provider Nurse Practitioner Family
DX: J32.9 Chronic sinusitis, unspecified (principal)
CPT/HCPCS: 99213

== ENCOUNTER 2023-02-14 15:21 | Outpatient (AMB) | payer OTHER, SELFPAY ==
[2023-02-14 15:31] VITALS: BP 138/88; PULSE 80; O2SAT 99; BMI 36.1
--- NOTE | 2023-02-14 15:31 | MHC.PC.OV ---
Vital Signs 02/14/23 15:31 Height 5 ft 3 in Weight 204 lb 0.4 oz BMI 36.1 BP 138/88 Blood Pressure Location Lt brachial Position Sitting Pulse 80 Pulse Source Pulse Oximeter Pulse Oximetry (%) 99 Oxygen Delivery Method Room Air Intake Visit Reasons: Found Lump on breast Allergies amoxicillin [AMOXICILLIN] Allergy (Severe, Verified 02/14/23 15:31) HIVES doxycycline Allergy (Unknown, Verified 02/14/23 15:31) Rash Tobacco use date assessed: 02/14/23 Dental Screening Dental Screen Date: 02/14/23 Did you have a dental visit in the last 12 months?: Yes Did you have a dental problem in the last 6 months where you did not have access to dental care?: No Was dental information given to patient?: Patient has dentist HPI Found Lump on breast HPI Details 42-year-old obese female with hypercholesterolemia GERD history of SVT and right hip pain. Last seen in June 2021 had physical exam at that time. Patient is here for acute problem. Last mammogram was August 2022. mass L groin, 2 month intermittent getting smaller and bigger but has persisted to be there on the left groin. Patient also has been complaining of low back pain in the sacrum area states has had question for fracture before but has no x-ray results here. [facility] Medical History (Updated 02/14/23 @ 16:09 by Lisbeth Paige MD) Asthma, allergic Post-operative nausea and vomiting Duodenal adenoma Obesity (BMI 30-39.9) Trochanteric bursitis of left hip GERD (gastroesophageal reflux disease) Familial adenomatous polyposis Splenomegaly Migraine with aura PCOS (polycystic ovarian syndrome) Polyp of duodenum Obesity SVT (supraventricular tachycardia) Surgical History History of delivery Hx of endoscopy History of colonoscopy Family History Father Brain tumor Mother Colon polyp Maternal Uncle Colon polyp Maternal Aunt Colon polyp Myocardial infarct Substance abuse Pancreatitis Father No problems noted. Son No problems noted. Daughter No problems noted. 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 How often do you have a drink containing alcohol?: 2-3 times a week 2. How many drinks containing alcohol do you have on a typical day when you are drinking?: 3 or 4 3. How often do you have six or more drinks on one occasion?: Never Total Score: 4 Score Reviewed/Action Taken: Yes TI-7 AMB Questionnaire TI-7 Date TI - 7 assessed: 02/14/23 Feeling nervous, anxious, or on edge: 0 = Not at all Not being able to stop or control worryin = Not at all Worrying too much about different things: 0 = Not at all Trouble relaxin = Not at all Being so restless that it is hard to sit still: 0 = Not at all Becoming easily annoyed or irritable: 0 = Not at all Feeling afraid as if something awful might happen: 0 = Not at all Total TI-7 score (0-4 normal; 5-9 mild; 10-14 moderate; 15-21 severe): 0 Source: Developed by Drs. Javier Fontenot, Sarah Church, Jeffrey Ortiz and colleagues, with an educational surekha from [employer]. Physical exam (Primary Care) Vital Signs: Last Vital Signs Pulse 80 02/14/23 15:31 BP 138/88 02/14/23 15:31 Pulse Ox 99 02/14/23 15:31 Oxygen Delivery Method Room Air 02/14/23 15:31 BMI result Body Mass Index 36.1 Tobacco/Smoking Status: Tobacco use Status Tobacco use date assessed 02/14/23 02/14/23 15:32 Patient Tobacco Use Status Never used Tobacco 02/14/23 15:32 e-Cigarette/Vaping Use Never Used 02/14/23 15:32 Thrive Assessment: Date of Thrive Assessment Date Thrive assessed 07/02/21 02/14/23 15:32 Const General: alert; No acute distress Eyes Conjunctivae: conjunctivae normal Resp Auscultation: clear to auscultation bilaterally Cardio Rate: regular rate Rhythm: regular rhythm GI Inspection: Yes normal to inspection Extrem General: Yes normal to inspection and No edema Assessment and Plan Assessment & Plan (1) Left groin mass: Comment: Left groin mild hyperpigmentation with 1 cm mass noted Code(s): R19.09 - Other intra-abdominal and pelvic swelling, mass and lump Plan: Patient was recently on an antibiotic and the mass did not get any better. Will do an ultrasound. Will do a referral to the surgeon (2) Low back pain: Code(s): M54.50 - Low back pain, unspecified Plan: X-ray of the sacral area requested Orders: Orders US extremity nonvascular stephens Today R19.09 - Other intra-abdominal and pelvic swelling, mass and lump XR sacrum coccyx min 2V Today M54.50 - Low back pain, unspecified Referrals General Surgery Referral R19.09 - Other intra-abdominal and pelvic swelling, mass and lump Coding Level of Care Code Est Pt Level 3 (96217) Diagnoses Left groin mass R19.09 Low back pain M54.50
== END 2023-02-14 16:09 | disposition home or self-care (01) ==
LOC: HO.HMGH 15:21
PROVIDERS: PCP Internal Medicine; Visit Provider Internal Medicine
DX: R19.09 Other intra-abdominal and pelvic swelling, mass and lump (principal); M54.50 Low back pain, unspecified
CPT/HCPCS: 99213

== ENCOUNTER 2023-03-13 14:51 | Outpatient (REF) | payer OTHER, SELFPAY ==
--- NOTE | ~2023-03-13 | XR_ITS ---
EXAMINATION: XR SACRUM AND COCCYX CLINICAL INFORMATION: Pain unspecified COMPARISON: None available. TECHNIQUE: 2 views of the sacrum and 2 views of the coccyx were obtained. FINDINGS: No fracture or destructive process in the sacrum and coccyx. SI joints are symmetric. XR/XR sacrum coccyx min 2V IMPRESSION: Negative exam.
--- NOTE | ~2023-03-13 | US_ITS ---
EXAMINATION: ULTRASOUND LEFT INGUINAL REGION CLINICAL INFORMATION: Left groin mass. COMPARISON: None. TECHNIQUE: Using a linear transducer with grayscale and color modalities, ultrasound examination is performed of the left inguinal region. FINDINGS: Corresponding with the palpable finding in the left inguinal region, a 6 x 2 x 5 mm subdermal anechoic cyst is seen. There is a posterior possible sinus tract. There is adjacent peripheral color flow. No solid lesion is seen. No lymphadenopathy is seen. No aneurysm is noted. US/US extremity nonvascular IMPRESSION: A 6 mm subdermal cystic focus is seen in the proximal left thigh/inguinal region, corresponding with the palpable finding described by the patient. This could represent an epidermal inclusion cyst or possibly a small abscess or seroma. Recommend management on a clinical basis.
== END 2023-03-13 14:52 | disposition home or self-care (01) ==
LOC: HO.US 14:51
PROVIDERS: PCP Internal Medicine; Visit Provider Internal Medicine
DX: M54.50 Low back pain, unspecified (principal); R19.09 Other intra-abdominal and pelvic swelling, mass and lump
CPT/HCPCS: 72220; 76882

== ENCOUNTER 2023-03-27 14:15 | Outpatient (AMB) | payer OTHER, SELFPAY ==
--- NOTE | 2023-03-27 14:31 | A.OFFVIS_ITS ---
Intake Vital Signs 03/27/23 14:39 Height 5 ft 3 in Weight 206 lb BMI 36.5 BP 124/59 L Blood Pressure Location Rt brachial Position Sitting Pulse 83 Intake Visit Reasons: mass lt groin/hip Intake Note: This patient was referred by for an assessment for mass left groin/hip. Pt c/o; Onset 4 months, reports lump left inner thigh which gets bigger when ovulating, reports no pain or discomfort at this time. 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 Accompanied by: Self / Same As Patient Allergies amoxicillin [AMOXICILLIN] Allergy (Severe, Verified 03/27/23 14:40) HIVES doxycycline Allergy (Unknown, Verified 03/27/23 14:40) Rash Medication List - Last Reconciled 03/27/23 by Braeden Case MD albuterol sulfate 90 mcg/actuation (Ventolin HFA) 2 puffs inhalation Q4-6H PRN cyanocobalamin (vitamin B-12) 1,000 mcg PO DAILY fluticasone propionate 50 mcg/actuation (Flonase Allergy Relief) 1 spray intranasal DAILY 14 days lansoprazole 30 mg PO DAILY loratadine (Claritin) 10 mg PO DAILY metoprolol succinate ER 25 mg PO DAILY 90 days scopolamine base (Transderm-Scop) 1 patch transdermal Q3D PRN HPI mass lt groin/hip HPI Details [age] year old female referred for a left groin mass. She has fel t this for the past few months. She thinks that sometimes this seems to be bigger. She denies any swelling, pain or tenderness. She denies any discharge.. [facility] Medical History (Updated 03/27/23 @ 14:47 by Braeden Case MD) Epidermal cyst Asthma, allergic Post-operative nausea and vomiting Duodenal adenoma Obesity (BMI 30-39.9) Trochanteric bursitis of left hip GERD (gastroesophageal reflux disease) Familial adenomatous polyposis Splenomegaly Migraine with aura PCOS (polycystic ovarian syndrome) Polyp of duodenum Obesity SVT (supraventricular tachycardia) Surgical History History of delivery Hx of endoscopy History of colonoscopy Family History Father Brain tumor Mother Colon polyp Maternal Uncle Colon polyp Maternal Aunt Colon polyp Myocardial infarct Substance abuse Pancreatitis Father No problems noted. Son No problems noted. Daughter No problems noted. 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 Sexual orientation: Straight/Heterosexual Gender identity: Female Cognitive needs: No Hearing needs: No Vision needs: No Female Reproductive History Menstrual Age of Menarche: 12 Review of Systems Const Denies chills and Denies fever(s) Card Denies chest pain, Denies dyspnea and Denies dyspnea on exertion Resp Denies cough, Denies dyspnea and Denies dyspnea on exertion GI Denies hematochezia and Denies change in bowel habits Denies hematuria Musc Denies back pain and Denies limited range of motion Neuro Denies focal weakness and Denies convulsions Psych Denies depression and Denies mood swings Physical Exam Const General: comfortable and no acute distress Orientation/consciousness: patient oriented x3 Neck Neck: Yes no lymphadenopathy Resp Auscultation: clear to auscultation bilaterally Cardio Rhythm: regular rhythm GI Palpation (GI): Soft to palpation, nontender and no guarding Neuro General: patient oriented x3 Extrem Other: Left groin near the thigh area is note of what seems to be an epidermal cyst, about 5 mm in size, clean non inflamed, not tender Assessment & Plan Assessment & Plan (1) Epidermal cyst: Code(s): L72.0 - Epidermal cyst Plan: She is what appears to be an epidermal cyst on the left groin. This is seen on the ultrasound as well as a possible epidermal inclusion cyst . I explained to her the option of excision under local anesthesia. I discussed the risks including but not limited to bleeding and infections, as well as the benefits and alternatives . She says that this really does not bother her at this time. She wants to hold off on excision. She says she will come back to the office once she decides to proceed. Coding Level of Care Code New Pt Level 3 (87612) Diagnoses Epidermal cyst L72.0
[2023-03-27 14:39] VITALS: BP 124/59; PULSE 83; BMI 36.5
== END 2023-03-27 14:47 | disposition home or self-care (01) ==
PROVIDERS: PCP Internal Medicine; Visit Provider Surgery
DX: L72.0 Epidermal cyst (principal)
CPT/HCPCS: 99203

== ENCOUNTER → 2023-03-27 14:15 | Outpatient (BNVA) | payer OTHER, SELFPAY | PROVIDERS: PCP Internal Medicine; Visit Provider Surgery ==

== ENCOUNTER 2023-04-15 15:16 | Outpatient (AMB) | payer OTHER, SELFPAY ==
[2023-04-15 15:27] VITALS: BP 124/84; PULSE 85; O2SAT 98; BMI 36.3
--- NOTE | 2023-04-15 15:27 | MHC.PC.OV ---
Vital Signs 04/15/23 15:27 Height 5 ft 3 in Weight 205 lb BMI 36.3 BP 124/84 Blood Pressure Location Lt brachial Position Sitting Pulse 85 Pulse Source Pulse Oximeter Pulse Oximetry (%) 98 Oxygen Delivery Method Room Air Intake Visit Reasons: ? of pinched nerve Intake Note: The patient presents with neck pain radiating to the left arm since yesterday. 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 Accompanied by: Self / Same As Patient Allergies amoxicillin [AMOXICILLIN] Allergy (Severe, Verified 04/15/23 15:36) HIVES doxycycline Allergy (Unknown, Verified 04/15/23 15:36) Rash Medication List - Last Reconciled 04/15/23 by Avelino Cai PA-C albuterol sulfate 90 mcg/actuation (Ventolin HFA) 2 puffs inhalation Q4-6H PRN cyanocobalamin (vitamin B-12) 1,000 mcg PO DAILY fluticasone propionate 50 mcg/actuation (Flonase Allergy Relief) 1 spray intranasal DAILY 14 days lansoprazole 30 mg PO DAILY loratadine (Claritin) 10 mg PO DAILY metoprolol succinate ER 25 mg PO DAILY 90 days scopolamine base (Transderm-Scop) 1 patch transdermal Q3D PRN Tobacco use date assessed: 02/14/23 HPI ? of pinched nerve HPI Details Patient is a 42-year-old female here for problem visit. This is the 1st time I am meeting this 42-year-old female with a past medical history of asthma, GERD, B12 deficiency and hypertriglyceridemia. Virgie Reports having bad neck pain radiating into left shoulder. She reports having chronic neck pain though this pain over the last 48 hours has been more intense than her usual. She has been using lidocaine patch in more ibuprofen over the last 48 hours. She denies any recent trauma to her neck. She denies any weakness/numbness tingling in her left wrist or hand. [facility] Medical History (Updated 04/15/23 @ 15:45 by Avelion Cai PA-C) Epidermal cyst Asthma, allergic Post-operative nausea and vomiting Duodenal adenoma Obesity (BMI 30-39.9) Trochanteric bursitis of left hip GERD (gastroesophageal reflux disease) Familial adenomatous polyposis Splenomegaly Migraine with aura PCOS (polycystic ovarian syndrome) Polyp of duodenum Obesity SVT (supraventricular tachycardia) Surgical History History of delivery Hx of endoscopy History of colonoscopy Family History Father Brain tumor Mother Colon polyp Maternal Uncle Colon polyp Maternal Aunt Colon polyp Myocardial infarct Substance abuse Pancreatitis Father No problems noted. Son No problems noted. Daughter No problems noted. 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 1. Little interest or pleasure in doing things: not at all 2. Feeling down, depressed, or hopeless: not at all 3. Trouble falling or staying asleep, or sleeping too much: not at all 4. Feeling tired or having little energy: not at all 5. Poor appetite or overeating: not at all 6. Feeling bad about yourself - or that you are a failure or have let yourself or your family down: not at all 7. Trouble concentrating on things, such as reading the newspaper or watching television: not at all 8. Moving or speaking so slowly that other people could have noticed. Or the opposite - being so fidgety or restless that you have been moving around a lot more than usual: not at all 9. Thoughts that you would be better off or of hurting yourself in some way: not at all Total score: 0 Depression Screening Interpretation: Negative Depression Screening Done: Yes 64132 - PHQ-9 Billing: Yes Source: Developed by Drs. Javier Fontenot, Sarah Church, Jeffrey Ortiz and colleagues, with an educational surekha from [employer]. Thrive Questionnaire Date Thrive assessed: 04/15/23 I am a: Patient What is your living situation today?: I have a steady place to live Within the past 12 months, did the food you bought not last and you didn't have the money to get more?: Never true Within the past 12 months, did you worry whether your food would run out before you got money to buy more?: Never true Do you have trouble paying for medicines?: No Do you have trouble getting transportation to medical appointments?: No Do you have trouble paying your heating and electricity bill?: No Do you have trouble taking care of your child, family member or friend?: No Do you have trouble with day-to-day activities such as bathing, preparing meals, shopping, managing finances, etc.?: No Are you currently unemployed and looking for a job?: No Are you interested in more education?: No Please select the resources that you would like help with: None Currently or been in a relationship where the following occur: no concerns reported THRIVE Score: 0 AUDIT C Alcohol Use Questionnaire (AUDIT-C) 1. How often do you have a drink containing alcohol?: Never 3. How often do you have six or more drinks on one occasion?: Never Total Score: 0 TI-7 AMB Questionnaire TI-7 Date TI - 7 assessed: 04/15/23 Feeling nervous, anxious, or on edge: 0 = Not at all Not being able to stop or control worryin = Not at all Worrying too much about different things: 0 = Not at all Trouble relaxin = Not at all Being so restless that it is hard to sit still: 0 = Not at all Becoming easily annoyed or irritable: 0 = Not at all Feeling afraid as if something awful might happen: 0 = Not at all Total TI-7 score (0-4 normal; 5-9 mild; 10-14 moderate; 15-21 severe): 0 Source: Developed by Drs. Javier Fontenot, Sarah Church, Jeffrey Ortiz and colleagues, with an educational surekha from [employer]. TI-7 Assessment Billing TI-7 Assessment Tool: TI-7 Assessment 40683 Review of Systems Const Denies headache(s) Eyes Denies loss of vision ENT Denies vertigo, Denies dizziness, Denies headache(s) and Denies sore throat Card Denies chest pain, Denies leg edema and Denies lightheadedness Resp Denies cough, Denies hemoptysis and Denies wheezing GI Denies abdominal pain, Denies melena, Denies constipation, Denies diarrhea and Denies vomiting Denies urinary frequency, Denies dysuria and Denies urinary urgency Musc Denies arthralgias, Denies joint swelling, Denies numbness and Denies tingling Neuro Denies Abnormal speech present, Denies behavioral changes, Denies vertigo, Denies dizziness, Denies headache(s), Denies loss of vision, Denies memory loss, Denies numbness and Denies tingling Psych Denies anxiety, Denies behavioral changes, Denies depression, Denies memory loss and Denies panic attacks Yusuf/Lymph Denies easy bleeding and Denies easy bruising Aller/Immun Denies wheezing Physical exam (Primary Care) Vital Signs: Last Vital Signs Pulse 85 04/15/23 15:27 BP 124/84 04/15/23 15:27 Pulse Ox 98 04/15/23 15:27 Oxygen Delivery Method Room Air 04/15/23 15:27 BMI result Body Mass Index 36.3 Tobacco/Smoking Status: Tobacco use Status Tobacco use date assessed 02/14/23 04/15/23 15:36 Patient Tobacco Use Status Never used Tobacco 04/15/23 15:36 e-Cigarette/Vaping Use Never Used 04/15/23 15:36 PHQ-9: PHQ-9 Score PHQ-9: Total score 0 04/15/23 15:39 Depression Screening Interpretation: Negative Thrive Assessment: Date of Thrive Assessment Date Thrive assessed 04/15/23 04/15/23 15:36 Currently or been in a relationship where the following occur: no concerns reported Const General: healthy appearing, no acute distress, alert and awake Nutritional Appearance: well nourished Orientation/consciousness: oriented to person, oriented to place and oriented to time HENMT Ears: TM's normal bilaterally General nose exam: Normal nasal mucous membranes and turbinates present Eyes Conjunctivae: conjunctivae normal Sclerae: sclerae normal Pupils: Equal, round and reactive pupils present Neck Neck: Yes no lymphadenopathy and Yes no JVD Thyroid: Thyroid normal Carotids: no bruits Resp Effort & Inspection: normal respiratory effort and not tachypneic Auscultation: no crackles, no rales, no rhonchi and no wheezes Cardio Rate: regular rate Rhythm: regular rhythm Heart sounds: no murmurs and normal S1 and S2 GI Palpation (GI): Soft to palpation, nontender, no hepatomegaly and no splenomegaly Auscultation: normal bowel sounds Skin General skin exam: no rashes or lesions noted and dry skin Neuro General: oriented to person, oriented to place and oriented to time Cranial nerves: Yes Equal, round and reactive pupils present Speech: No Abnormal speech present Gait exam (Neuro): Normal gait present Motor exam (neuro): no tremor noted Extrem Right upper extremity: full ROM Left upper extremity: full ROM Right lower extremity: full ROM; no edema Left lower extremity: full ROM; no edema Psych Mental Status: mental status grossly normal Speech and movement: Normal speech and movement present Affect: normal affect Attitude: cooperative Thought process: Normal thought process present Assessment and Plan Assessment & Plan (1) Cervical radicular pain: Code(s): M54.12 - Radiculopathy, cervical region Plan: Patient's signs and symptoms most consistent cervical spine disc herniation versus a more nerve entrapment. Will send for x-ray, physical therapy. If she fails physical therapy will consider MRI of the cervical spine. Will supply patient with prednisone taper muscle relaxer. Orders: Orders PT Evaluation and Treatment 04/15/23 M54.12 - Radiculopathy, cervical region XR cervical spine 4V 04/15/23 M54.12 - Radiculopathy, cervical region Medications: New prednisone take 3 tabs x 2 days, 2 tablets x2 days, 1 tablet x2 days 10 mg PO DIRECTED 6 days 12 tabs 0RF M54.12 - Radiculopathy, cervical region cyclobenzaprine 5 mg PO BEDTIME 15 days 15 tabs 0RF M54.12 - Radiculopathy, cervical region Coding Level of Care Code Est Pt Level 3 (19012) Diagnoses Cervical radicular pain M54.12 Additional Codes TI-7 Assessment Billing - TI-7 Assessment Tool: TI-7 Assessment 34355 ([id number])
== END 2023-04-15 15:53 | disposition home or self-care (01) ==
PROVIDERS: PCP Internal Medicine; Visit Provider Physician Assistant
DX: M54.12 Radiculopathy, cervical region (principal)
CPT/HCPCS: 99213

== ENCOUNTER 2023-04-15 15:58 | Outpatient (REF) | payer OTHER, SELFPAY ==
--- NOTE | ~2023-04-15 | XR_ITS ---
EXAMINATION: XR CERVICAL SPINE CLINICAL INFORMATION: Cervical radiculopathy. COMPARISON: None available. TECHNIQUE: Frontal, odontoid, bilateral oblique, lateral and swimmer's views of the cervical spine were obtained. FINDINGS: Vertebral body heights and alignment are normal. The cervical disc spaces are well-maintained. No acute fracture or spondylolisthesis is seen. There is a tiny limbus vertebra anterior to the C4-C5 vertebral body. The posterior elements are intact. The neural foramina appear patent on the oblique views. The dens is intact. No prevertebral soft tissue swelling is seen. XR/XR cervical spine 4V IMPRESSION: Unremarkable examination.
== END 2023-04-15 15:59 | disposition home or self-care (01) ==
LOC: HO.XRAY 15:58
PROVIDERS: PCP Internal Medicine; Visit Provider Physician Assistant
DX: M54.12 Radiculopathy, cervical region (principal)
CPT/HCPCS: 72050

== ENCOUNTER 2023-09-02 08:10 | Outpatient (REF) | payer OTHER, SELFPAY | END 2023-09-02 08:11 | disposition home or self-care (01) | LOC: HO.MAMMO 08:10 | PROVIDERS: PCP Internal Medicine; Visit Provider Internal Medicine | DX: Z12.31 Encounter for screening mammogram for malignant neoplasm of breast (principal) | CPT/HCPCS: 77063; 77067 ==

== ENCOUNTER → 2023-09-02 08:30 | Outpatient (BNV) | payer OTHER, SELFPAY | PROVIDERS: PCP Internal Medicine; Visit Provider Radiology Diagnostic Radiology | DX: Z12.31 Encounter for screening mammogram for malignant neoplasm of breast (principal) | CPT/HCPCS: 77063; 77067 ==

== ENCOUNTER 2023-09-02 08:47 | Outpatient (AMB) | payer OTHER, SELFPAY ==
--- NOTE | 2023-09-02 08:50 | A.OFFVIS_ITS ---
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 Doing well with concerns: Perimenopausal changes, hot flashes, mood changes, weight gain. Not interested in currently exploring any treatments and is able to cope with her changes currently. Not currently motivated to eat healthy or exercise at this time, admits to busy with her children in activities. History of PCOS admits to having regular monthly menses in the last year so, moon bernard has mittelschmerz spotting for a day. Prior history of fibroids. Currently is sexually active. She denies vaginal itching and irritation. STI screening offered; declines. Denies family history of breast, ovarian or colon cancer. Last pap smear 2019, negative. Mammogram: Pending read. She reports colonoscopy is scheduled for next week. [facility]LY [facility] Medical History Epidermal cyst Asthma, allergic Post-operative nausea and vomiting Duodenal adenoma Obesity (BMI 30-39.9) Trochanteric bursitis of left hip GERD (gastroesophageal reflux disease) Familial adenomatous polyposis Splenomegaly Migraine with aura PCOS (polycystic ovarian syndrome) Polyp of duodenum Obesity SVT (supraventricular tachycardia) Surgical History History of delivery Hx of endoscopy History of colonoscopy Family History Father Brain tumor Mother Colon polyp Maternal Uncle Colon polyp Maternal Aunt Colon polyp Myocardial infarct Substance abuse Pancreatitis Father No problems noted. Son No problems noted. Daughter No problems noted. 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 Sexual orientation: Straight/Heterosexual Gender identity: Female Cognitive needs: No Hearing needs: No Vision needs: No Female Reproductive History Menstrual Age of Menarche: 12 Duration of menses: 6-7 days Date of last menstrual period: 08/14/23 control method: other (vasectomy) Total pregnancies: 2 Full term: 2 Number of Living Children: 2 Date of last pap smear: 12/07/19 (neg pap and hpv) Date of Mammogram: 08/26/22 (Birad 1) Review of Systems Const All systems reviewed & are unremarkable except as noted in HPI and below Reports as per HPI Eyes Reports no additional complaints ENT Reports no additional complaints Card Reports no additional complaints Resp Reports no additional complaints GI Reports as per HPI and Reports no additional complaints Reports as per HPI Musc Reports no additional complaints Skin/Breast Reports as per HPI Neuro Reports no additional complaints Psych Reports no additional complaints Endo Reports no additional complaints Yusuf/Lymph Reports no additional complaints Aller/Immun Reports no additional complaints Physical Exam Vital Signs: Last Vital Signs BP 122/78 09/02/23 08:54 BMI result Body Mass Index 36.0 Const General: cooperative, healthy appearing, no acute distress, well developed and alert Orientation/consciousness: patient oriented x3 HEENT Head: Yes normal to inspection Eyes General: appearance normal, both eyes and all related structures Neck Neck: Yes normal visual inspection Thyroid: Thyroid normal Chest Chest palpation & inspection: normal inspection of the chest and other (no puckering, dimpling, peau de orange, retraction, discharge, masses) Breast/axilla inspection: normal inspection of the breasts Breast/axilla palpation: normal palpation of the breasts Resp Effort & Inspection: normal respiratory effort GI Inspection: Yes normal to inspection Palpation (GI): Soft to palpation Rectal Exam - Female: deferred General: Yes bladder normal to palpation External Female Exam: normal external appearance and normal appearance of the urethra Speculum Exam - Vagina: normal appearance of the vagina, normal palpation and normal vaginal discharge Speculum Exam - Cervix: normal appearance of the cervix and normal palpation Bimanual exam- vagina & uterus: normal bimanual exam, normal palpation, uterine size normal, bladder normal to palpation, normal palpation and non-tender Bimanual Exam- Adnexa, other: no masses Skin General skin exam: no rashes or lesions noted Rashes: no rashes Neuro General: patient oriented x3 Cognition (Neuro): normal cognition Extrem General: Yes normal to inspection Psych Attitude: cooperative Thought process: Normal thought process present Assessment & Plan Assessment & Plan (1) Well woman exam with routine gynecological exam: Code(s): Z01.419 - Encounter for gynecological examination (general) (routine) without abnormal findings Category: Medical (2) History of uterine fibroid: Code(s): Z86.018 - Personal history of other benign neoplasm Plan Discussed: Current recommendations for pap smears per ASCCP guidelines. Breast awareness and periodic breast exams. Maintain a healthy lifestyle including a well balanced diet and routine exercise. Plan pelvic ultrasound history of fibroids in the past. Perimenopausal changes, treatment and self-help measures. Reference to menopause work website. Pelvic ultrasound, follow up in person for test results. Monitor menstrual cycles, report any unscheduled bleeding, bleeding episodes <24 days apart or heavy/prolonged menstrual bleeding. Call the office for a follow up for any concerns. Mammogram yearly. Patient verbalizes understanding and agrees to the plan of care. She was given opportunity to ask questions and all questions were answered to the best of my ability. 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 This note is constructed using voice recognition software. While every effort has been made to ensure accuracy, boiler control room operator errors may have been included. Orders: Orders US pelvic and transvaginal Today E28.2 - Polycystic ovarian syndrome, Z86.018 - Personal history of other benign neoplasm Coding Level of Care Code Est Pt Prev Care 40-64y(81562) Diagnoses Well woman exam with routine gynecological exam Z01.419 History of uterine fibroid Z86.018
[2023-09-02 08:54] VITALS: BP 122/78; BMI 36.0
== END 2023-09-02 09:41 | disposition home or self-care (01) ==
PROVIDERS: PCP Internal Medicine; Visit Provider Advanced Practice Midwife
DX: Z01.419 Encounter for gynecological examination (general) (routine) without abnormal findings (principal); Z86.018 Personal history of other benign neoplasm
CPT/HCPCS: 99396

== ENCOUNTER 2023-09-08 16:17 | Outpatient (REF) | payer OTHER, SELFPAY ==
--- NOTE | ~2023-09-08 | US_ITS ---
EXAMINATION: US PELVIS CLINICAL INFORMATION: History of uterine fibroids and polycystic ovary syndrome. COMPARISON: None available. TECHNIQUE: Ultrasound of the pelvis is performed using both transabdominal and transvaginal transducers along with Doppler. Transvaginal imaging is performed due to inadequate visualization transabdominally. FINDINGS: Uterus: The uterus is anteverted and measures 9.6 x 5.9 x 7.6 cm. There is a mild arcuate configuration. Nabothian cysts are seen within the cervix. The double wall endometrial thickness is 1.6 mm. The uterus is smooth in contour and has normal myometrial echogenicity. No visible fibroid. Adnexa: Both ovaries are visualized. There is normal color flow to the adnexa. There is no ovarian torsion. There is a small amount of free fluid in the cul-de-sac. Right ovary measures 3.9 x 3.1 x 2.7 cm, volume 17.1 mL. Left ovary measures 2.9 x 2.4 x 2.6 cm, volume 9.5 mL. US/US pelvic and transvaginal IMPRESSION: 1. The endometrial stripe thickness is at the upper limits of normal. 2. Nabothian cysts are seen within the cervix. 3. The uterus shows a mild arcuate configuration. 4. A small amount of nonspecific free fluid in the cul-de-sac. Electronically signed by: Willie Herrera MD 10/06/2023 03:33 PM EDT
== END 2023-09-08 16:18 | disposition home or self-care (01) ==
LOC: HO.US 16:17
PROVIDERS: PCP Internal Medicine; Visit Provider Advanced Practice Midwife
DX: Z86.018 Personal history of other benign neoplasm (principal); E28.2 Polycystic ovarian syndrome
CPT/HCPCS: 76830; 76856

== ENCOUNTER 2023-09-11 09:02 | Day surgery (SDC) | payer OTHER, SELFPAY ==
--- NOTE | 2023-09-10 10:04 | HO.ANESPROP2 ---
Documented by User: Mellisa Chance NP 09/10/23 10:05 HPI - Anesthesia Eval Consult details Narrative: 42yo F for Upper Endoscopy and Colonoscopy FOR[facility]LY [facility], LAT[facility] Active Problems Active Problems: All Active Problems Cervical radicular pain (Acute) Epidermal cyst (Acute) Low back pain (Acute) Left groin mass (Acute) Asthma, allergic (Acute) Sinusitis (Acute) Annual physical exam (Acute) Annual physical exam (Acute) Hypertriglyceridemia (Acute) Vitamin B12 deficiency (Acute) History of adenomatous polyp of colon (Acute) Obesity (BMI 30-39.9) (Acute) GERD (gastroesophageal reflux disease) (Acute) PCOS (polycystic ovarian syndrome) (Acute) SVT (supraventricular tachycardia) (Acute) Past Medical History Medical History Epidermal cyst Asthma, allergic Post-operative nausea and vomiting Duodenal adenoma Obesity (BMI 30-39.9) Trochanteric bursitis of left hip GERD (gastroesophageal reflux disease) Familial adenomatous polyposis Splenomegaly Migraine with aura PCOS (polycystic ovarian syndrome) Polyp of duodenum Obesity SVT (supraventricular tachycardia) Family History Family History Father Brain tumor Mother Colon polyp Maternal Uncle Colon polyp Maternal Aunt Colon polyp Myocardial infarct Substance abuse Pancreatitis Father No problems noted. Son No problems noted. Daughter No problems noted. Maternal Grandfather Myocardial infarct Family history of problems with anesthesia: Yes Surgical History Surgical History History of delivery Hx of endoscopy History of colonoscopy History of Problems with Anesthesia: Yes Social History Social History Housing: House Alcohol intake: current Alcohol intake frequency: a few times a month Patient Tobacco Use Status: Former Tobacco user Tobacco use type: Cigarette Smoked in Last 30 Days: No e-Cigarette/Vaping Use: Never Used Second Hand Smoke Exposure: No Use of substances other than those prescribed or required for medical reasons: Yes Substance Use Type: Marijuana Substance Use Type Other:: nightly edible marijuana Substance Use Frequency: Daily Are you DNR?: No Advance Directives: No Advance Directives Information Provided: Yes Current occupational status: 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 Sexual orientation: Straight/Heterosexual Gender identity: Female Cognitive needs: No Hearing needs: No Vision needs: No Meds Allergies Allergy/AdvReac Type Severity Reaction Status Date / Time amoxicillin [AMOXICILLIN] Allergy Severe HIVES Verified 09/02/23 08:54 doxycycline Allergy Unknown Rash Verified 09/02/23 08:54 Home Medications ?Medication ?Instructions ?Recorded ?Confirmed ?Last Taken ?Type loratadine 10 mg tablet (Claritin) 10 mg PO DAILY 08/21/22 04/15/23 Unknown History sucralfate 1 gram tablet 1 g PO BID PRN 09/02/23 Unknown History Assessment and Plan Assessment Anesthesia Assessment: Chart Reviewed Final Anesthetic Review Family History of Problems with Anesthesia: Yes History of Problems with Anesthesia: Yes Documented by User: Joyce Carpenter MD 09/11/23 10:50 PMFSH Past Medical History Medical History Epidermal cyst Asthma, allergic Post-operative nausea and vomiting Duodenal adenoma Obesity (BMI 30-39.9) Trochanteric bursitis of left hip GERD (gastroesophageal reflux disease) Familial adenomatous polyposis Splenomegaly Migraine with aura PCOS (polycystic ovarian syndrome) Polyp of duodenum Obesity SVT (supraventricular tachycardia) Family History Family History Father Brain tumor Mother Colon polyp Maternal Uncle Colon polyp Maternal Aunt Colon polyp Myocardial infarct Substance abuse Pancreatitis Father No problems noted. Son No problems noted. Daughter No problems noted. Maternal Grandfather Myocardial infarct Surgical History Surgical History History of delivery Hx of endoscopy History of colonoscopy Social History Social History Housing: House Alcohol intake: current Alcohol intake frequency: a few times a month Patient Tobacco Use Status: Former Tobacco user Tobacco use type: Cigarette Smoked in Last 30 Days: No e-Cigarette/Vaping Use: Never Used Second Hand Smoke Exposure: No Use of substances other than those prescribed or required for medical reasons: Yes Substance Use Type: Marijuana Substance Use Type Other:: nightly edible marijuana Substance Use Frequency: Daily Are you DNR?: No Advance Directives: No Advance Directives Information Provided: Yes Current occupational status: 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 Sexual orientation: Straight/Heterosexual Gender identity: Female Cognitive needs: No Hearing needs: No Vision needs: No Meds Allergies Allergy/AdvReac Type Severity Reaction Status Date / Time amoxicillin [AMOXICILLIN] Allergy Severe HIVES Verified 09/02/23 08:54 doxycycline Allergy Unknown Rash Verified 09/02/23 08:54 Home Medications ?Medication ?Instructions ?Recorded ?Confirmed ?Last Taken ?Type loratadine 10 mg tablet (Claritin) 10 mg PO DAILY 08/21/22 04/15/23 Unknown History sucralfate 1 gram tablet 1 g PO BID PRN 09/02/23 Unknown History Exam Airway Mallampati Class: II TM Dist: >3cm Neck ROM: Full Loose/Missing/Broken Teeth: No Heart: RRR Lungs: CTA Assessment and Plan Assessment Anesthesia Assessment: Anesthesia Plan Discussed Final Anesthetic Review NPO: Yes ASA Class: II and Emergency Final Preanesthetic Review: Meds/Allgs Chart Reviewed, Consent Obtained/Reviewed and Anes Risks/Benef Reviewed Patient Risk: Low Procedure Risk: Intermediate Anesthetic Plan Anesthetic Plan: MAC: Disposition: Standard PACU
[2023-09-11 09:12] VITALS: BMI 35.4
[2023-09-11 09:22] VITALS: BP 131/65; PULSE 84; RESP 16; TEMP 36.2; O2SAT 95; BMI 35.4
[2023-09-11 09:22] LABS: UPreg QC Valid YES; Urine Pregnancy NEGATIVE (NEGATIVE)
--- NOTE | 2023-09-11 10:17 | P.HPSUR_ITS ---
Pre-Procedural Eval Section A - 24 Hr Update-Section A only Date of Service: 09/11/23 Section B - Complete if H&P > 30 days Chief Complaint: Personal history of colonic polyps Details of Present Illness: FH of polyps Relevant Family History (Specify if Yes): Yes Relevant Social History: None Present Medications: see Short Stay Collaborative assessment Medical History: Significant History (Epidermal cyst Asthma, allergic Post- operative nausea and vomiting Duodenal adenoma Obesity (BMI 30-39.9) Trochanteric bursitis of left hip GERD (gastroesophageal reflux disease) Familial adenomatous polyposis Splenomegaly Migraine with aura PCOS (polycystic ovarian syndrome) Polyp of duodenum Obesi) History of Previous Operations: Relevant previous surgery/procedure and date(s) (History of delivery Hx of endoscopy History of colonoscopy) Allergies: Allergies Allergy/AdvReac Type Severity Reaction Status Date / Time amoxicillin [AMOXICILLIN] Allergy Severe HIVES Verified 09/02/23 08:54 doxycycline Allergy Unknown Rash Verified 09/02/23 08:54 Review of Systems Sugical H&P ROS: Negative: Constitution, Cardiovascular, Respiratory, Neurological, Psychiatric, Hem-Onc, Allergic/Immunologic, Gastrointestinal, Genitourinary, Musculoskeletal, Integumentary, Endocrine and Eyes/Ears/Nose/Throat Exam Surgical H&P Exam: Normal: HEENT, Normal: Heart, Normal: Lungs, Normal: Extremities, Normal: Abdomen, Normal: Skin and Normal: Neurological Plan Diagnosis/Plan: Unchanged I have reviewed the history and physical and performed a pertinent physical examination on my patient. No changes have occurred unless specified. Time Spent With Patient Time: Total time managing care of this patient today ____ minutes.
--- NOTE | 2023-09-11 12:08 | HO.OPN-COLON ---
Colonoscopy Operative Note Operative Note Date of Service: 09/11/23 Narrative: Operative Information Procedure Description: EGD, Colonoscopy Indication: Hx of colon polyps, and duodenal adenoma Anesthesia: MAC FLEXIBLE TRANSORAL UPPER GASTROINTESTINAL ENDOSCOPY AND COLONOSCOPY PROCEDURE NOTE UPPER ENDOSCOPY Consent: Indications for the procedure and potential complications of bleeding, perforation, reaction to medications and missed diagnosis were discussed with the patient and informed consent was obtained. Instrument: Olympus GIF H 190 J mid size upper endoscope Monitoring: Vital signs and clinical assessment, continuous EKG monitoring, Pulse oximetry, Carbon Dioxide monitoring and blood pressure monitoring were done throughout the procedure. Procedure: The patient was placed in the left lateral decubitis position and pre-procedure medications were administered and a bite block was placed. The endoscope was inserted into the mouth and advanced under direct vision to the third part of duodenum. A careful inspection was made as the upper endoscope was withdrawn including a retroflexed examination of the proximal stomach; Findings and interventions are described below. Findings: Larynx:normal Esophagus: GE junction at 36 cm, diaphragm hiatus at 36 cm, normal mucosa Stomach: Normal mucosa, scattered fundic gland polyps. Grade 2 flap valve on retroflexed examination of the cardia. Duodenum: polypoid lesion in distal bulb 5-8 mm removed with cold forceps Intervention: Biopsies as noted above, COLONOSCOPY Instrument: Olympus variable stiffness pediatric scope 190L Colonoscopy Monitoring: Vital signs and clinical assessment, continuous EKG monitoring, Pulse oximetry, Carbon Dioxide monitoring and blood pressure monitoring were done throughout the procedure. Colon withdrawal time was 12 minutes. Procedure: The patient was placed in the left lateral decubitis position and pre-procedure medications were administered. After a digital rectal examination of the ano-rectum, the video colonoscope was inserted into the rectum and advanced through the colon to the cecum/TI. The colonoscope was slowly withdrawn in a retrograde panoramic fashion and the colon mucosa was carefully examined including a retroflexed view of the rectum. Findings and interventions are described below. Procedure Difficulty:moderate Findings: Terminal Ileum-not intubated Cecum:normal Ascending Colon: 8-9 mm flat polyp lifted with eleview injection then removed with cold snare Transverse Colon -normal Descending Colon:normal Sigmoid Colon: normal Rectum: Retroflexion with small internal hemorrhoids, grade I Anorectum - normal Colon preparation: [place] Bowel Preparation Scale Right colon; 2 Transverse colon: 2 Left colon; 2 (0 = Unprepared colon segment with mucosa not seen due to solid stool that cannot be cleared. 1 = Portion of mucosa of the colon segment seen, but other areas of the colon segment not well seen due to staining, residual stool and/or opaque liquid. 2 = Minor amount of residual staining, small fragments of stool and/or opaque liquid, but mucosa of colon segment seen well. 3 = Entire mucosa of colon segment seen well with no residual staining, small fragments of stool or opaque liquid) Impression and Post Procedure Diagnosis: Endoscopy Findings: fundic gland polyps possible duodenal adenoma vs liz gland Colonoscopy Findings: colon polyp internal hemorrhoids Plan: Await Pathology results Repeat Colonoscopy in 3-4 years or earlier if clinically indicated High fiber diet leaflet avoid straining at stool, epsom salts and sitz bath, anusol supps or cream Repeat EGD 3-5 yrs due to hx of duodenal adenoma Above findings were reviewed with the patient and relevant handouts were provided if indicated.
[2023-09-11 12:13] VITALS: BP 109/73; PULSE 86; RESP 18; TEMP 36.5; O2SAT 100
[2023-09-11 12:28] VITALS: BP 123/75; PULSE 87; RESP 18; TEMP 36.6; O2SAT 96
== END 2023-09-11 13:11 | disposition home or self-care (01) ==
PROVIDERS: Nurse Practitioner; PCP Internal Medicine; Visit Provider Internal Medicine Gastroenterology
PROC: (CPT 45385; principal; 2023-09-11 11:30)
DX: Z12.11 Encounter for screening for malignant neoplasm of colon (principal); Z86.010 Personal history of colon polyps; Z83.719 Family history of colon polyps, unspecified; D12.2 Benign neoplasm of ascending colon; K64.0 First degree hemorrhoids; K31.7 Polyp of stomach and duodenum; K29.80 Duodenitis without bleeding; K44.9 Diaphragmatic hernia without obstruction or gangrene; K21.9 Gastro-esophageal reflux disease without esophagitis; R16.1 Splenomegaly, not elsewhere classified; I47.10 Supraventricular tachycardia, unspecified; E28.2 Polycystic ovarian syndrome; Z79.899 Other long term (current) drug therapy; Z88.1 Allergy status to other antibiotic agents; Z87.891 Personal history of nicotine dependence; Z98.890 Other specified postprocedural states
CPT/HCPCS: 45385; 45381; 43239; 81025; 88305; 88313; J1596; J2704

== ENCOUNTER → 2023-09-11 09:02 | Outpatient (BNV) | payer OTHER, SELFPAY | PROVIDERS: PCP Internal Medicine; Visit Provider Internal Medicine Gastroenterology | DX: Z12.11 Encounter for screening for malignant neoplasm of colon (principal); K57.90 Diverticulosis of intestine, part unspecified, without perforation or abscess without bleeding; K64.0 First degree hemorrhoids; K21.9 Gastro-esophageal reflux disease without esophagitis; K22.70 Barrett's esophagus without dysplasia | CPT/HCPCS: 43239; 45378 ==

== ENCOUNTER 2023-10-25 08:31 | Outpatient (REF) | payer OTHER, SELFPAY ==
[2023-10-25 08:50] LABS: MANUAL DIFF FLAG NO
[2023-10-25 09:29] LABS: Basophils Percent Auto 0.4 % (0-2); Eosinophils Absolute Auto 0.1 X10*3/uL (0.0-0.4); Eosinophils Percent Auto 1.7 % (0-4); Hemoglobin 11.8 g/dl (12.0-16.0); Imm Gran Abs Auto 0.02 X10*3/uL (0.00-0.03); Imm Gran Pct Auto 0.4 % (0.0-0.4); Lymphocytes Percent Auto 21.8 % (20-40); Mean Corpuscular HGB Conc 32.8 g/dl (31.0-35.0); Mean Corpuscular Hemoglobin 26.8 pg (27.0-33.0); Mean Corpuscular Volume 81.6 fL (80.0-98.0); Monocytes Absolute Auto 0.3 X10*3/uL (0.1-1.2); Monocytes Percent Auto 5.7 % (2-11); Neutrophils Absolute Auto 3.3 x10*3/uL (2.0-8.3); Platelet Count 224 X10*3/uL (160-400); Red Blood Count 4.41 X10*6/uL (4.20-5.50); Red Cell Distribution Width 14.4 % (11.0-16.0); White Blood Count 4.7 X10*3/uL (4.8-10.8)
[2023-10-25 10:09] LABS: Alanine Aminotransferase 9 U/L (0-31); Albumin Level 4.4 g/dL (3.5-5.0); Alkaline Phosphatase 44 U/L (39-117); Anion Gap 13 (12-20); Aspartate Amino Transferase 12 U/L (5-31); Bilirubin Total 0.4 mg/dL (0.0-1.0); Blood Urea Nitrogen 9 mg/dL (9-16); Calcium 9.2 mg/dL (8.4-10.2); Carbon Dioxide 26 mmol/L (22-29); Chloride 105 mmol/L (96-108); Cholesterol 151 mg/dL (<200); Estimated Glomerular Filt Rate > 60; Glucose Fasting 106 mg/dL (60-99); HDL Cholesterol 36 mg/dL (>40); LDL Cholesterol Calculated 70 mg/dL (<100); Potassium 4.2 mmol/L (3.3-5.1); Sodium 140 mmol/L (135-145); Total Protein 6.9 g/dL (6.5-8.0); Triglycerides 229 mg/dL (<150)
[2023-10-25 10:26] LABS: TSH reflex Free T4 0.91 uIU/mL (0.32-4.0); Vitamin D 25-OH Total 46.3 ng/mL (>30)
[2023-10-25 10:39] LABS: Folate 13.5 ng/mL (> or = 4.0); Vitamin B12 1945 pg/mL (200-900)
== END 2023-10-25 08:32 | disposition home or self-care (01) ==
LOC: HO.LAB 08:31
PROVIDERS: PCP Internal Medicine; Visit Provider Internal Medicine
DX: Z00.00 Encounter for general adult medical examination without abnormal findings (principal)
CPT/HCPCS: 36415; 80053; 80061; 82306; 82607; 82746; 84443; 85025

== ENCOUNTER 2023-10-30 15:31 | Outpatient (AMB) | payer OTHER, SELFPAY ==
--- NOTE | 2023-10-30 15:31 | A.OFFPC_ITS ---
Intake Visit Reasons: ? 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 Sinus Infection HPI Details 42-year-old female with a history of MELCHOR D hypercholesterolemia asthma calling in for an acute problem.kids sick , congested , no fever, 1 week , no sob. asthma controlled. Patient has check for COVID twice and is negative but family has it. [facility] Medical History (Updated 10/30/23 @ 16:42 by Lisbeth Paige MD) Annual physical exam Epidermal cyst Asthma, allergic Post-operative nausea and vomiting Duodenal adenoma Obesity (BMI 30-39.9) Trochanteric bursitis of left hip GERD (gastroesophageal reflux disease) Familial adenomatous polyposis Splenomegaly Migraine with aura PCOS (polycystic ovarian syndrome) Polyp of duodenum Obesity SVT (supraventricular tachycardia) Surgical History History of delivery Hx of endoscopy History of colonoscopy Family History Father Brain tumor Mother Colon polyp Maternal Uncle Colon polyp Maternal Aunt Colon polyp Myocardial infarct Substance abuse Pancreatitis Father No problems noted. Son No problems noted. Daughter No problems noted. 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 1. Little interest or pleasure in doing things: not at all 2. Feeling down, depressed, or hopeless: not at all 3. Trouble falling or staying asleep, or sleeping too much: not at all 4. Feeling tired or having little energy: not at all 5. Poor appetite or overeating: not at all 6. Feeling bad about yourself - or that you are a failure or have let yourself or your family down: not at all 7. Trouble concentrating on things, such as reading the newspaper or watching television: not at all 8. Moving or speaking so slowly that other people could have noticed. Or the opposite - being so fidgety or restless that you have been moving around a lot more than usual: not at all 9. Thoughts that you would be better off or of hurting yourself in some way: not at all Total score: 0 Depression Screening Interpretation: Negative Depression Screening Done: Yes [id number] - PHQ-9 Billing: Yes Source: Developed by Drs. Javier Fontenot, Sarah Church, Jeffrey Ortiz and colleagues, with an educational surekha from [employer]. Thrive Questionnaire Date Thrive assessed: 10/30/23 I am a: Patient What is your living situation today?: I have a steady place to live Within the past 12 months, did the food you bought not last and you didn't have the money to get more?: Never true Within the past 12 months, did you worry whether your food would run out before you got money to buy more?: Never true Do you have trouble paying for medicines?: No Do you have trouble getting transportation to medical appointments?: No Do you have trouble paying your heating and electricity bill?: No Do you have trouble taking care of your child, family member or friend?: No Do you have trouble with day-to-day activities such as bathing, preparing meals, shopping, managing finances, etc.?: No Are you currently unemployed and looking for a job?: No Are you interested in more education?: No Please select the resources that you would like help with: None Currently or been in a relationship where the following occur: No concerns reported THRIVE Score: 0 AUDIT C Alcohol Use Questionnaire (AUDIT-C) 1. How often do you have a drink containing alcohol?: Never 3. How often do you have six or more drinks on one occasion?: Never Total Score: 0 TI-7 AMB Questionnaire TI-7 Date TI - 7 assessed: 10/30/23 Feeling nervous, anxious, or on edge: 0 = Not at all Not being able to stop or control worryin = Not at all Worrying too much about different things: 0 = Not at all Trouble relaxin = Not at all Being so restless that it is hard to sit still: 0 = Not at all Becoming easily annoyed or irritable: 0 = Not at all Feeling afraid as if something awful might happen: 0 = Not at all Total TI-7 score (0-4 normal; 5-9 mild; 10-14 moderate; 15-21 severe): 0 Source: Developed by Drs. Javier Fontenot, Sarah Church, Jeffrey Ortiz and colleagues, with an educational surekha from [employer]. TI-7 Assessment Billing TI-7 Assessment Tool: TI-7 Assessment 85889 Physical exam (Primary Care) Tobacco/Smoking Status: Tobacco use Status Tobacco use date assessed 10/30/23 10/30/23 15:32 Patient Tobacco Use Status Former Tobacco user 10/30/23 15:32 Tobacco use type Cigarette 10/30/23 15:32 e-Cigarette/Vaping Use Never Used 10/30/23 15:32 PHQ-9: PHQ-9 Score PHQ-9: Total score 0 10/30/23 16:39 Depression Screening Interpretation: Negative Thrive Assessment: Date of Thrive Assessment Date Thrive assessed 10/30/23 10/30/23 15:32 Currently or been in a relationship where the following occur: No concerns reported Telehealth Telehealth Telehealth Platform: Telephone Location of provider rendering services: practice address Location of patient: address on file Patient Identification confirmed using: Name, : Yes Telehealth method: voice only Patient verbally consented to treatment: Yes Patient verbally consented to billing insurance company: Yes Patient informed of any privacy concerns related to visit: Yes Minutes spent on Phone/Video with Pt.: 15 Assessment and Plan Assessment & Plan (1) Asthma, allergic: Code(s): J45.909 - Unspecified asthma, uncomplicated Plan: Presently on albuterol. (2) Impaired glucose tolerance: Code(s): R73.02 - Impaired glucose tolerance (oral) Plan: Decrease the amount of carbohydrate intake, pasta, bread, rice and potatoes are all sugar and that is aside from all the sweet stuff, remember that fruits are good but they are Sweet also. (3) Hypertriglyceridemia: Code(s): E78.1 - Pure hyperglyceridemia Plan: Avoid fried foods, chicken skin, eggs, butter margarine, pastries and meat. Be it pork or beef they have a lot of cholesterol (4) Sinus congestion: Code(s): R09.81 - Nasal congestion Plan: Antibiotics sent in advised to increase oral fluids. Flonase sent in to help decongest. Medications: New azithromycin (Zithromax) For 250 mg dose pack: take 500 mg today (day 1), then 250 mg for 4 days (days 2-5) PO 6 tabs 0RF R09.81 - Nasal congestion Refilled fluticasone propionate 50 mcg/actuation (Flonase Allergy Relief) administer into each nostril 1 spray intranasal DAILY 100 mL 0RF 14 days J32.9 - Chronic sinusitis, unspecified Coding Level of Care Code Tele Est Pt Level 3 (11199) Diagnoses Asthma, allergic J45.909 Impaired glucose tolerance R73.02 Hypertriglyceridemia E78.1 Sinus congestion R09.81 Additional Codes TI-7 Assessment Billing - TI-7 Assessment Tool: TI-7 Assessment [id number] ([id number])
== END 2023-10-30 16:47 | disposition home or self-care (01) ==
LOC: HO.HMCH 15:31
PROVIDERS: PCP Internal Medicine; Visit Provider Internal Medicine
DX: J45.909 Unspecified asthma, uncomplicated (principal); R73.02 Impaired glucose tolerance (oral); E78.1 Pure hyperglyceridemia; R09.81 Nasal congestion

== ENCOUNTER → 2023-10-30 15:31 | Outpatient (BNVA) | payer OTHER, SELFPAY | PROVIDERS: PCP Internal Medicine; Visit Provider Internal Medicine | DX: J45.909 Unspecified asthma, uncomplicated (principal); R73.02 Impaired glucose tolerance (oral); E78.1 Pure hyperglyceridemia; R09.81 Nasal congestion | CPT/HCPCS: 96127 ==

== ENCOUNTER 2023-11-06 15:57 | Outpatient (AMB) | payer OTHER, SELFPAY ==
--- NOTE | 2023-11-06 16:00 | A.OFFPC_ITS ---
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 Inspector Required: No Accompanied by: Self / Same As Patient Allergies amoxicillin [AMOXICILLIN] Allergy (Severe, Verified 11/06/23 16:03) HIVES doxycycline Allergy (Unknown, Verified 11/06/23 16:03) Rash Medication List - Last Reconciled 11/06/23 by Lisbeth Paige MD albuterol sulfate 90 mcg/actuation (Ventolin HFA) 2 puffs inhalation Q4-6H PRN Bifidobacterium infantis (Align) 4 mg PO BEDTIME cyanocobalamin (vitamin B-12) 1,000 mcg PO DAILY fluticasone propionate 50 mcg/actuation (Flonase Allergy Relief) 1 spray intranasal DAILY 14 days lansoprazole 30 mg PO DAILY loratadine (Claritin) 10 mg PO DAILY metoprolol succinate ER 25 mg PO DAILY 90 days scopolamine base (Transderm-Scop) 1 patch transdermal Q3D PRN sucralfate 1 g PO BID PRN vit C-vit U6-V-sjod-elderberry 90 mg-3.15 mcg- 3.35 mg-150 mg (Airborne Elderberry Complex) tabs PO Tobacco use date assessed: 10/30/23 Dental Screening Dental Screen Date: 11/06/23 Did you have a dental visit in the last 12 months?: Yes Did you have a dental problem in the last 6 months where you did not have access to dental care?: No Was dental information given to patient?: Patient has dentist HPI PE HPI0 Details 42-year-old obese female with an asthma , impaired glucose tolerance, hypertriglyceridemia coming in for physical exam last seen in October 29. Oseas kimbrough's colonoscopy last done in 08/30/2023, mammogram is up-to-date. occ dizzy [facility] Medical History (Updated 11/06/23 @ 16:39 by Lisbeth Paige MD) Annual physical exam Epidermal cyst Asthma, allergic Post-operative nausea and vomiting Duodenal adenoma Obesity (BMI 30-39.9) Trochanteric bursitis of left hip GERD (gastroesophageal reflux disease) Familial adenomatous polyposis Splenomegaly Migraine with aura PCOS (polycystic ovarian syndrome) Polyp of duodenum Obesity SVT (supraventricular tachycardia) Surgical History History of delivery Hx of endoscopy History of colonoscopy Family History Father Brain tumor Mother Colon polyp Maternal Uncle Colon polyp Maternal Aunt Colon polyp Myocardial infarct Substance abuse Pancreatitis Father No problems noted. Son No problems noted. Daughter No problems noted. 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 1. Little interest or pleasure in doing things: not at all 2. Feeling down, depressed, or hopeless: not at all 3. Trouble falling or staying asleep, or sleeping too much: not at all 4. Feeling tired or having little energy: several days 5. Poor appetite or overeating: several days 6. Feeling bad about yourself - or that you are a failure or have let yourself or your family down: not at all 7. Trouble concentrating on things, such as reading the newspaper or watching television: not at all 8. Moving or speaking so slowly that other people could have noticed. Or the opposite - being so fidgety or restless that you have been moving around a lot more than usual: not at all 9. Thoughts that you would be better off or of hurting yourself in some way: not at all Total score: 2 Source: Developed by Drs. Javier Fontenot, Sarah Church, Jeffrey Ortiz and colleagues, with an educational surekha from [employer]. Thrive Questionnaire Date Thrive assessed: 11/06/23 I am a: Patient What is your living situation today?: I have a steady place to live Within the past 12 months, did the food you bought not last and you didn't have the money to get more?: Never true Within the past 12 months, did you worry whether your food would run out before you got money to buy more?: Never true Do you have trouble paying for medicines?: No Do you have trouble getting transportation to medical appointments?: No Do you have trouble paying your heating and electricity bill?: No Do you have trouble taking care of your child, family member or friend?: No Do you have trouble with day-to-day activities such as bathing, preparing meals, shopping, managing finances, etc.?: No Are you currently unemployed and looking for a job?: No Are you interested in more education?: No Please select the resources that you would like help with: None Currently or been in a relationship where the following occur: No concerns reported THRIVE Score: 0 AUDIT C Alcohol Use Questionnaire (AUDIT-C) 1. How often do you have a drink containing alcohol?: 2-4 times a month 2. How many drinks containing alcohol do you have on a typical day when you are drinking?: 1 or 2 3. How often do you have six or more drinks on one occasion?: Never Total Score: 2 TI-7 AMB Questionnaire TI-7 Date TI - 7 assessed: 11/06/23 Feeling nervous, anxious, or on edge: 1 = Several days Not being able to stop or control worryin = Several days Worrying too much about different things: 1 = Several days Trouble relaxin = Not at all Being so restless that it is hard to sit still: 0 = Not at all Becoming easily annoyed or irritable: 1 = Several days Feeling afraid as if something awful might happen: 1 = Several days Total TI-7 score (0-4 normal; 5-9 mild; 10-14 moderate; 15-21 severe): 5 Source: Developed by Drs. Javier Fontenot, Sarah Church, Jeffrey Ortiz and colleagues, with an educational surekha from [employer]. Review of Systems Const Denies poor appetite and Denies weakness Eyes Denies no additional complaints ENT Reports Normal hearing present, Denies dizziness, Denies nasal congestion, Denies tinnitus and Denies sore throat Card Denies chest pain, Denies syncope, Denies rapid heart rate and Denies dyspnea Resp Denies cough and Denies dyspnea GI Denies change in stool character, Reports constipation, Denies diarrhea, Denies nausea and Denies vomiting Denies urinary frequency, Denies difficulty voiding and Denies dysuria Neuro Reports Normal hearing present, Denies confusion, Denies dizziness, Denies syncope and Denies weakness Psych Denies confusion Physical exam (Primary Care) Vital Signs: Last Vital Signs Pulse 82 11/06/23 16:01 BP 130/80 11/06/23 16:01 Pulse Ox 97 11/06/23 16:01 Oxygen Delivery Method Room Air 11/06/23 16:01 BMI result Body Mass Index 35.6 Tobacco/Smoking Status: Tobacco use Status Tobacco use date assessed 10/30/23 11/06/23 16:07 Patient Tobacco Use Status Former Tobacco user 11/06/23 16:07 Tobacco use type Cigarette 11/06/23 16:07 e-Cigarette/Vaping Use Never Used 11/06/23 16:07 PHQ-9: PHQ-9 Score PHQ-9: Total score 2 11/06/23 16:07 Thrive Assessment: Date of Thrive Assessment Date Thrive assessed 11/06/23 11/06/23 16:07 Currently or been in a relationship where the following occur: No concerns reported Const General: No confusion Orientation/consciousness: No confusion HENMT Head: Yes normocephalic Ears: external ears normal and TM's normal bilaterally Face and sinus: Yes normal facial exam Mouth: moist mucous membranes Throat: Yes tonsils normal Eyes Conjunctivae: conjunctivae normal Pupils: Equal, round and reactive pupils present and Pupil accommodation reflex normal Direct Ophthalmoscopy: normal light reflex Neck Neck: No lymphadenopathy Thyroid: Thyroid normal Chest Chest palpation & inspection: normal inspection of the chest Resp Effort & Inspection: normal respiratory effort and no audible wheezes Auscultation: clear to auscultation bilaterally, no crackles, no wheezes and lung sounds not diminished Cardio Rate: regular rate Rhythm: regular rhythm Peripheral pulses: radial pulses present and dorsalis pedis present GI Palpation (GI): no masses Auscultation: normal bowel sounds and normoactive bowel sounds Rectal Exam - Female: deferred Skin General skin exam: no rashes or lesions noted Rashes: no rashes Neuro General: No confusion Cranial nerves: Yes Equal, round and reactive pupils present and Yes Normal hearing present Cognition (Neuro): normal cognition Gait exam (Neuro): Normal gait present Motor exam (neuro): 5/5 motor strength present throughout Deep tendon reflexes (DTR's): Right brachioradialis reflex intensity grade: 2+, Left brachioradialis reflex intensity grade: 2+, Right patellar reflex intensity grade: 2+ and Left patellar reflex intensity grade: 2+ Extrem General: No edema Assessment and Plan Assessment & Plan (1) Annual physical exam: Code(s): Z00.00 - Encounter for general adult medical examination without abnormal findings Plan: Patient is advised to eat healthy, keep well hydrated, keep active and have adequate sleep. (2) Asthma, allergic: Code(s): J45.909 - Unspecified asthma, uncomplicated Plan: Continue with albuterol inhaler as needed (3) Impaired glucose tolerance: Code(s): R73.02 - Impaired glucose tolerance (oral) Plan: Decrease the amount of carbohydrate intake, pasta, bread, rice and potatoes are all sugar and that is aside from all the sweet stuff, remember that fruits are good but they are Sweet also. (4) Hypertriglyceridemia: Code(s): E78.1 - Pure hyperglyceridemia Plan: Avoid fried foods, chicken skin, eggs, butter margarine, pastries and meat. Be it pork or beef they have a lot of cholesterol LDL goal of less than 130 and triglyceride of less than 150 (5) Obesity (BMI 30-39.9): Code(s): E66.9 - Obesity, unspecified Plan: Diet and exercise (6) GERD (gastroesophageal reflux disease): Code(s): K21.9 - Gastro-esophageal reflux disease without esophagitis Qualifiers: Esophagitis presence: without esophagitis Qualified Code(s): K21.9 - Gastro-esophageal reflux disease without esophagitis Plan: Avoid the foods that causes that usually spicy foods, tomato products, juices, coffee, soda and foods that your sensitive to. After eating do not lie down, allow 3-4 hours before in lie down. And keep the head of bed above 30 degrees to avoid the acid from going up. (7) SVT (supraventricular tachycardia): Code(s): I47.1 - Supraventricular tachycardia Plan: Stable with the use of metoprolol (8) Anemia: Code(s): D64.9 - Anemia, unspecified (9) Impaired fasting blood sugar: Code(s): R73.01 - Impaired fasting glucose Orders: Orders Complete Blood Count Auto Diff 3 Months D64.9 - Anemia, unspecified IRON PROFILE 3 Months D64.9 - Anemia, unspecified Vitamin B12 and Folate 3 Months D64.9 - Anemia, unspecified Comprehensive Met. Panel 3 Months D64.9 - Anemia, unspecified Hemoglobin A1c 3 Months R73.01 - Impaired fasting glucose Ferritin 3 Months D64.9 - Anemia, unspecified Reticulocyte Count 3 Months D64.9 - Anemia, unspecified Lipid Panel 3 Months D64.9 - Anemia, unspecified, E78.00 - Pure hypercholesterolemia, unspecified Medications: New tirzepatide (weight loss) (Zepbound) for 4 weeks 2.5 mg (0.5 mL) subcut QWEEK 2 mL 1RF E66.9 - Obesity, u nspecified Coding Level of Care Code Est Pt Prev Care 40-64y(21153) Diagnoses Annual physical exam Z00.00 Asthma, allergic J45.909 Impaired glucose tolerance R73.02 Hypertriglyceridemia E78.1 Obesity (BMI 30-39.9) E66.9 Gastroesophageal reflux disease without esophagitis K21.9 Esophagitis presence: without esophagitis SVT (supraventricular tachycardia) I47.1 Anemia D64.9 Impaired fasting blood sugar R73.01
[2023-11-06 16:01] VITALS: BP 130/80; PULSE 82; O2SAT 97; BMI 35.6
== END 2023-11-06 16:55 | disposition home or self-care (01) ==
PROVIDERS: PCP Internal Medicine; Visit Provider Internal Medicine
DX: Z00.00 Encounter for general adult medical examination without abnormal findings (principal); I47.10 Supraventricular tachycardia, unspecified; E66.9 Obesity, unspecified; Z68.35 Body mass index [BMI] 35.0-35.9, adult; J45.909 Unspecified asthma, uncomplicated; R73.02 Impaired glucose tolerance (oral); E78.1 Pure hyperglyceridemia; K21.9 Gastro-esophageal reflux disease without esophagitis; D64.9 Anemia, unspecified; R73.01 Impaired fasting glucose

== ENCOUNTER → 2023-11-06 15:57 | Outpatient (BNVA) | payer OTHER, SELFPAY | PROVIDERS: PCP Internal Medicine; Visit Provider Internal Medicine | DX: Z00.00 Encounter for general adult medical examination without abnormal findings (principal); J45.909 Unspecified asthma, uncomplicated; R73.02 Impaired glucose tolerance (oral); E78.1 Pure hyperglyceridemia; E66.9 Obesity, unspecified; K21.9 Gastro-esophageal reflux disease without esophagitis; I47.10 Supraventricular tachycardia, unspecified; D64.9 Anemia, unspecified; R73.01 Impaired fasting glucose; Z79.899 Other long term (current) drug therapy | CPT/HCPCS: 96127 ==

== ENCOUNTER 2024-02-02 09:59 | Outpatient (REF) | payer OTHER, SELFPAY ==
[2024-02-02 10:12] LABS: MANUAL DIFF FLAG NO
[2024-02-02 10:30] LABS: Basophils Percent Auto 0.6 % (0-2); Eosinophils Absolute Auto 0.1 X10*3/uL (0.0-0.4); Hematocrit 35.3 % (37.0-47.0); Hemoglobin 11.7 g/dl (12.0-16.0); Imm Gran Abs Auto 0.03 X10*3/uL (0.00-0.03); Imm Gran Pct Auto 0.6 % (0.0-0.4); Immature Retic Fraction 29.8 % (3.0-15.9); Lymphocytes Absolute Auto 1.1 X10*3/uL (1.2-4.9); Lymphocytes Percent Auto 22.7 % (20-40); Mean Corpuscular HGB Conc 33.1 g/dl (31.0-35.0); Mean Corpuscular Hemoglobin 26.4 pg (27.0-33.0); Mean Corpuscular Volume 79.7 fL (80.0-98.0); Mean Platelet Volume 9.7 fL (9.4-12.3); Monocytes Absolute Auto 0.3 X10*3/uL (0.1-1.2); Monocytes Percent Auto 6.8 % (2-11); Neutrophils Absolute Auto 3.4 x10*3/uL (2.0-8.3); Neutrophils Percent Auto 67.3 % (45-73); Platelet Count 208 X10*3/uL (160-400); Red Blood Count 4.43 X10*6/uL (4.20-5.50); Retic HGB Equivalent 28.7 pg (30.0-35.0); Reticulocyte Percent 2.4 % (0.5-1.8); Reticulocytes Absolute 0.107 X10*6/uL (0.026-0.095)
[2024-02-02 10:47] LABS: Estimated Average Glucose 97 mg/dL; Hemoglobin A1C 94.8353 umol/L; Total Hemoglobin (HGBA1C) 3020.9914 umol/L
[2024-02-02 11:02] LABS: Alanine Aminotransferase 13 U/L (0-31); Albumin Level 4.4 g/dL (3.5-5.0); Alkaline Phosphatase 46 U/L (39-117); Anion Gap 11 (12-20); Aspartate Amino Transferase 18 U/L (5-31); Bilirubin Total 0.4 mg/dL (0.0-1.0); Blood Urea Nitrogen 13 mg/dL (9-16); Carbon Dioxide 27 mmol/L (22-29); Chloride 106 mmol/L (96-108); Cholesterol 159 mg/dL (<200); Estimated Glomerular Filt Rate > 60; Glucose Random 108 mg/dL (60-115); HDL Cholesterol 36 mg/dL (>40); Iron 51 mcg/dL (30-160); LDL Cholesterol Calculated 68 mg/dL (<100); Percent Iron Saturation 14 % (15-50); Potassium 4.3 mmol/L (3.3-5.1); Sodium 140 mmol/L (135-145); Total Iron Binding Capacity 353 mcg/dL (228-428); Total Protein 7.2 g/dL (6.5-8.0); Triglycerides 277 mg/dL (<150); Unsaturated Iron Binding 302 ug/dL
[2024-02-02 11:06] LABS: Ferritin 8 ng/mL (10-250)
[2024-02-02 11:24] LABS: Folate 15.2 ng/mL (> or = 4.0); Vitamin B12 902 pg/mL (200-900)
== END 2024-02-02 10:00 | disposition home or self-care (01) ==
LOC: HO.LAB 09:59
PROVIDERS: PCP Internal Medicine; Visit Provider Internal Medicine
DX: D64.9 Anemia, unspecified (principal); E78.00 Pure hypercholesterolemia, unspecified; R73.01 Impaired fasting glucose
CPT/HCPCS: 36415; 80053; 80061; 82607; 82728; 82746; 83036; 83540; 85025; 85045

== ENCOUNTER 2024-02-23 14:21 | Outpatient (AMB) | payer OTHER, SELFPAY ==
--- NOTE | 2024-02-23 14:22 | A.OFFPC_ITS ---
Intake Visit Reasons: Sinus Infection Allergies amoxicillin [AMOXICILLIN] Allergy (Severe, Verified 02/23/24 14:22) HIVES doxycycline Allergy (Unknown, Verified 02/23/24 14:22) Rash Tobacco use date assessed: 02/23/24 Dental Screening Dental Screen Date: 11/06/23 HPI Sinus Infection HPI Details states has sinus infection, covid 19 infection 02/17/2024 had 1 days of fever, congested. The patient is a 43-year-old female presenting with persistent sinus pressure and symptoms of sinusitis following a recent COVID-19 infection. The patient reports the onset of symptoms included low-grade fever and chills, initially presenting on a Friday night. By Friday morning, the patient tested positive for COVID-19. Prior to this, the patient had symptoms trav to a sinus infection over the weekend, for which she had been actively using nasal sprays, nasal irrigations, and a cool mist humidifier without significant improvement. The patient experienced a significant increase in facial sinus pressure, worsened by bending over, and described persistent bright yellow-green nasal discharge following nasal rinses. The patient has a history of recurrent sinusitis and has previously been treated with azithromycin and prednisone. She is allergic to penicillin and expresses hesitation in frequent use of prednisone due to potential side effects despite acknowledging its efficacy for severe sinusitis episodes. The patient also states ongoing issues with constipation and has a history of polycystic ovary syndrome. There was no improvement noted when previous symptoms resolved after the COVID-19 infection, and the sinus pressure and related symptoms have continued to date. - HEENT: Reports persistent sinus pressu re after COVID-19 infection, worsens on bending. - Respiratory: Denies current cough or s hortness of breath. - General: Reports past low-grade fever. - Gastrointestinal: Denies gastrointesti nal symptoms except constipation. - Allergies: Reports allergy to penicill in. [facility] Medical History (Updated 02/23/24 @ 16:44 by Lisbeth Paige MD) Annual physical exam Epidermal cyst Asthma, allergic Post-operative nausea and vomiting Duodenal adenoma Obesity (BMI 30-39.9) Trochanteric bursitis of left hip GERD (gastroesophageal reflux disease) Familial adenomatous polyposis Splenomegaly Migraine with aura PCOS (polycystic ovarian syndrome) Polyp of duodenum Obesity SVT (supraventricular tachycardia) Surgical History History of delivery Hx of endoscopy History of colonoscopy Family History Father Brain tumor Mother Colon polyp Maternal Uncle Colon polyp Maternal Aunt Colon polyp Myocardial infarct Substance abuse Pancreatitis Father No problems noted. Son No problems noted. Daughter No problems noted. 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 Javier Fontenot, Sarah Church, Jeffrey Ortiz and colleagues, with an educational surekha from [employer]. Physical exam (Primary Care) Tobacco/Smoking Status: Tobacco use Status Tobacco use date assessed 02/23/24 02/23/24 14:23 Patient Tobacco Use Status Former Tobacco user 02/23/24 14:23 Tobacco use type Cigarette 02/23/24 14:23 e-Cigarette/Vaping Use Never Used 02/23/24 14:23 Thrive Assessment: Date of Thrive Assessment Date Thrive assessed 11/06/23 02/23/24 14:23 Telehealth Telehealth Telehealth Platform: Telephone Location of provider rendering services: practice address Location of patient: address on file Patient Identification confirmed using: Name, : Yes Telehealth method: voice only Patient verbally consented to treatment: Yes Patient verbally consented to billing insurance company: Yes Patient informed of any privacy concerns related to visit: Yes Minutes spent on Phone/Video with Pt.: 15 Coding Level of Care Code Tele Est Pt Level 4 (59228) Diagnoses COVID-19 virus infection U07.1 Sinus congestion R09.81 Obesity (BMI 30-39.9) E66.9 Assessment & Plan Assessment & Plan (1) COVID-19 virus infection: Code(s): U07.1 - COVID-19 Category: Medical (2) Sinus congestion: Code(s): R09.81 - Nasal congestion Category: Medical (3) Obesity (BMI 30-39.9): Code(s): E66.9 - Obesity, unspecified Category: Medical Plan - Azithromycin to manage bacterial sinusitis. - Prednisone prescribed with dosing schedule for 4 days starting with 4 tablets, with gradual tapering while considering potential side effects. - Emphasize the importance of continued nasal irrigation and staying hydrated. - Monitor response to current treatment given the history of recurrent sinusitis. - Contemplate imaging studies like sinus x-rays if symptoms persist or worsen. - Refer to specialist consultation for longstanding issues if condition remains unresolved. During the visit, I reviewed with the patient the ongoing issues with sinus pressure exacerbated by a recent COVID-19 infection and concluded a secondary bacterial sinusitis is likely due to nasal discharge and other symptoms. Given her allergy to penicillin, I opted to prescribe azithromycin, which she has tolerated in the past. I also prescribed a course of prednisone, despite the patient's concerns about long-term use, explaining the tapering schedule and emphasizing ingestion with food to mitigate gastrointestinal side effects. I discussed the risks of overusing, including potential impacts on bone density, and advised monitoring. We reviewed lifestyle modifications, including staying hydrated and monitoring her symptoms closely. Imaging studies like sinus x-rays were suggested as potential next steps should symptoms not resolve, with the understanding that continued or worsening symptoms might necessitate further action. I addressed her concerns regarding past allergy testing and prospective insurance coverage for treatments. Orders: Orders XR sinus min 3V Today R09.81 - Nasal congestion Medications: New prednisone 4 tabs QD x 2 days then 3 tabs QD x 2 days then 2 tabs Qd x 2 days then 1 tab QD x 2 days PO daily; 20 tabs 0RF J45.909 - Unspecified asthma, uncomplicated, R09.81 - Nasal congestion azithromycin (Zithromax) For 250 mg dose pack: take 500 mg today (day 1), then 250 mg for 4 days (days 2-5) PO 6 tabs 0RF R09.81 - Nasal congestion tirzepatide (Mounjaro) for 4 weeks 2.5 mg (0.5 mL) subcut QWEEK 2 mL 0RF E66.9 - Obesity, unspecified
== END 2024-02-23 16:59 | disposition home or self-care (01) ==
LOC: HO.HMCH 14:21
PROVIDERS: PCP Internal Medicine; Visit Provider Internal Medicine
DX: U07.1 COVID-19 (principal); R09.81 Nasal congestion; E66.9 Obesity, unspecified

== ENCOUNTER → 2024-02-23 14:21 | Outpatient (BNVA) | payer OTHER, SELFPAY | PROVIDERS: PCP Internal Medicine; Visit Provider Internal Medicine ==

== ENCOUNTER 2024-04-26 08:06 | Outpatient (AMB) | payer OTHER, SELFPAY ==
--- NOTE | 2024-04-26 11:15 | MHC.OFFVISWM ---
VS Expanded 04/26/24 11:35 Height 5 ft 3 in Weight 201 lb BMI 35.6 Body Fat % 42.3 Body Fat Mass 84.7 Fat Free Mass 116 Visceral Fat Rating 11 Body Water % 41.2 Body Water Mass 82.6 Basal Metabolic Rate/Score 1,615 Intake Visit Reasons: [employer] [facility] *SEE COMMENTS* Allergies amoxicillin [AMOXICILLIN] Allergy (Severe, Verified 04/26/24 11:15) HIVES doxycycline Allergy (Unknown, Verified 04/26/24 11:15) Rash Medication List - Last Reconciled 04/26/24 by Chang Gee MD albuterol sulfate 90 mcg/actuation (Ventolin HFA) 2 puffs inhalation Q4-6H PRN ascorbate calcium (vitamin C) 500 mg PO DAILY ferrous gluconate 236 mg PO DAILY fluticasone propionate 50 mcg/actuation (Flonase Allergy Relief) 1 spray intranasal DAILY 14 days lansoprazole 30 mg PO DAILY loratadine (Claritin) 10 mg PO DAILY metoprolol succinate ER 25 mg PO DAILY 90 days multivitamin tabs PO vit C-vit S1-L-rgwy-elderberry 90 mg-3.15 mcg- 3.35 mg-150 mg (Airborne Elderberry Complex) tabs PO HPI HPI [employer] [facility] *SEE COMMENTS*: Details: Start time: 11.06am, End time: 11.36am ?I spent 25 minutes speaking with the patient on the phone plus an additional 5 minutes reviewing and updating records for a total of 30 minutes HPI Comments Details: Previous weight loss efforts: WW Wakes up: 5am, Sleeps: 9pm Breakfast: 9am (cereal bar, or banana) Lunch: 11am (grinder needle tip, salad) Dinner: 5-7pm (corn beef, salad, tacos) Snacks: 2-3pm (grapes, cookie), 8-9pm (sometimes cookie, fruit) Exercise: Has home ellipitical and bike Beverages: Coffee: (1 cup/d with almond milk), tea: (1 cup/d plain), soda: none, juice: rarely, ETOH: rarely PFSH Medical History (Updated 04/26/24 @ 11:18 by Chang Gee MD) Hip pain BMI 36.0-36.9,adult Annual physical exam Epidermal cyst Asthma, allergic Post-operative nausea and vomiting Duodenal adenoma Obesity (BMI 30-39.9) Trochanteric bursitis of left hip GERD (gastroesophageal reflux disease) Familial adenomatous polyposis Splenomegaly Migraine with aura PCOS (polycystic ovarian syndrome) Polyp of duodenum Obesity SVT (supraventricular tachycardia) Surgical History History of delivery Hx of endoscopy History of colonoscopy Family History Father Brain tumor Mother Colon polyp Maternal Uncle Colon polyp Maternal Aunt Colon polyp Myocardial infarct Substance abuse Pancreatitis Father No problems noted. Son No problems noted. Daughter No problems noted. 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 Current occupational exposures/hazards: No Sexual orientation: Straight/Heterosexual Gender identity: Female Cognitive needs: No Hearing needs: No Vision needs: No Female Reproductive History Menstrual Age of Menarche: 12 Telehealth Telehealth Telehealth Platform: Telephone Location of provider rendering services: practice address Location of patient: address on file Patient Identification confirmed using: Name, : Yes Telehealth method: voice only Patient verbally consented to treatment: Yes Patient verbally consented to billing insurance company: Yes Patient informed of any privacy concerns related to visit: Yes Minutes spent on Phone/Video with Pt.: 30 Assessment & Plan Assessment & Plan (1) Obesity (BMI 30-39.9): Code(s): E66.9 - Obesity, unspecified Category: Medical Plan: ?1.? Please buy the body composition scale we discussed and send me weight measurements as soon as possible and then once a week. 2. The best choice would be to purchase a stationary bike at home that can track calories. Let me know if you do so I can give you an exercise plan. Goal is to exercise for 150 minutes per week. 3. Goal is to lose at least 1.5-2lbs per week 4. Goal to lose a minimum of 10% of your weight, which is about 20lbs. Minimum weight goal: 180lbs in 3 months 5. I ordered a medication to help you with the weight loss which is called Zepbound. My office will try to authorize it. Please let me know when you receive it so I can give you a meal and exercise plan. Common side effects include nausea, vomiting, constipation, diarrhea, abdominal pain. Please let me know if you develop any of these symptoms. 6. Please track the calories you consume daily and aim not to exceed the 1200 calories per day. Avoid high calorie drinks, fried, or high in fat foods as well as large amount of carbohydrares (sweets, potatoes, rice, or pasta). Medications: New tirzepatide (weight loss) (Zepbound) for 4 weeks 2.5 mg (0.5 mL) subcut QWEEK 2 mL 0RF E28.2 - Polycystic ovarian syndrome, E66.9 - Obesity, unspecified, Z68.36 - Body mass index [BMI] 36.0-36.9, adult
[2024-04-26 11:35] VITALS: BMI 35.6
== END 2024-04-26 11:37 | disposition home or self-care (01) ==
LOC: HO.HBS 08:06
PROVIDERS: PCP Internal Medicine; Visit Provider Surgery
DX: E66.812 Obesity, class 2 (principal); Z68.35 Body mass index [BMI] 35.0-35.9, adult
CPT/HCPCS: 98009

== ENCOUNTER 2024-07-26 16:36 | Outpatient (AMB) | payer OTHER, SELFPAY ==
--- NOTE | 2024-07-26 16:36 | A.OFFPC_ITS ---
Vital Signs 07/26/24 16:39 Height 5 ft 3 in Blood Pressure Location Lt brachial Position Sitting Pulse Source Pulse Oximeter Oxygen Delivery Method Room Air Intake Visit Reasons: ? Sinus Infection Mainstreaming Facilitator Required: No Accompanied by: Self / Same As Patient Allergies amoxicillin [AMOXICILLIN] Allergy (Severe, Verified 07/26/24 16:37) HIVES doxycycline Allergy (Unknown, Verified 07/26/24 16:37) Rash Medication List - Last Reconciled 07/26/24 by Lisbeth Paige MD albuterol sulfate 90 mcg/actuation (Ventolin HFA) 2 puffs inhalation Q4-6H PRN ascorbate calcium (vitamin C) 500 mg PO DAILY azithromycin (Zithromax) For 250 mg dose pack: take 500 mg today (day 1), then 250 mg for 4 days (days 2-5) PO ferrous gluconate 236 mg PO DAILY fluticasone propionate 50 mcg/actuation (Flonase Allergy Relief) 1 spray intranasal DAILY 14 days lansoprazole 30 mg PO DAILY loratadine (Claritin) 10 mg PO DAILY metoprolol succinate ER 25 mg PO DAILY 90 days multivitamin tabs PO semaglutide 0.25 mg (0.368 mL) subcut QWEEK vit C-vit T1-J-tebv-elderberry 90 mg-3.15 mcg- 3.35 mg-150 mg (Airborne Elderberry Complex) tabs PO Tobacco use date assessed: 07/26/24 Dental Screening Dental Screen Date: 07/26/24 Did you have a dental visit in the last 12 months?: Yes Did you have a dental problem in the last 6 months where you did not have access to dental care?: No Was dental information given to patient?: Patient has dentist HPI ? Sinus Infection HPI Details concern about ear infection 2 weeks L ear , congested, no fevers sore throat, PFSH Medical History (Updated 07/26/24 @ 18:07 by Lisbeth Paige MD) Hip pain BMI 36.0-36.9,adult Annual physical exam Epidermal cyst Asthma, allergic Post-operative nausea and vomiting Duodenal adenoma Obesity (BMI 30-39.9) Trochanteric bursitis of left hip GERD (gastroesophageal reflux disease) Familial adenomatous polyposis Splenomegaly Migraine with aura PCOS (polycystic ovarian syndrome) Polyp of duodenum Obesity SVT (supraventricular tachycardia) Surgical History History of delivery Hx of endoscopy History of colonoscopy Family History Father Brain tumor Mother Colon polyp Maternal Uncle Colon polyp Maternal Aunt Colon polyp Myocardial infarct Substance abuse Pancreatitis Father No problems noted. Son No problems noted. Daughter No problems noted. 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 1. Little interest or pleasure in doing things: not at all 2. Feeling down, depressed, or hopeless: not at all 3. Trouble falling or staying asleep, or sleeping too much: not at all 4. Feeling tired or having little energy: several days 5. Poor appetite or overeating: several days 6. Feeling bad about yourself - or that you are a failure or have let yourself or your family down: not at all 7. Trouble concentrating on things, such as reading the newspaper or watching television: not at all 8. Moving or speaking so slowly that other people could have noticed. Or the opp osite - being so fidgety or restless that you have been moving around a lot more than usual: not at all 9. Thoughts that you would be better off or of hurting yourself in some way: not at all Total score: 2 Source: Developed by Drs. Javier Fontenot, Sarah Church, Jeffrey Ortiz and colleagues, with an educational surekha from [employer]. Thrive Questionnaire Date Thrive assessed: 07/26/24 I am a: Patient What is your living situation today?: I have a steady place to live Within the past 12 months, did the food you bought not last and you didn't have the money to get more?: Never true Within the past 12 months, did you worry whether your food would run out before you got money to buy more?: Never true Do you have trouble paying for medicines?: No Do you have trouble getting transportation to medical appointments?: No Do you have trouble paying your heating and electricity bill?: No Do you have trouble taking care of your child, family member or friend?: No Do you have trouble with day-to-day activities such as bathing, preparing meals, shopping, managing finances, etc.?: No Are you currently unemployed and looking for a job?: No Are you interested in more education?: No Please select the resources that you would like help with: None Currently or been in a relationship where the following occur: No concerns reported THRIVE Score: 0 AUDIT C Alcohol Use Questionnaire (AUDIT-C) 1. How often do you have a drink containing alcohol?: Monthly or less 2. How many drinks containing alcohol do you have on a typical day when you are drinking?: 1 or 2 3. How often do you have six or more drinks on one occasion?: Never Total Score: 1 TI-7 AMB Questionnaire TI-7 Date TI - 7 assessed: 07/26/24 Feeling nervous, anxious, or on edge: 0 = Not at all Not being able to stop or control worryin = Not at all Worrying too much about different things: 0 = Not at all Trouble relaxin = Not at all Being so restless that it is hard to sit still: 0 = Not at all Becoming easily annoyed or irritable: 0 = Not at all Feeling afraid as if something awful might happen: 0 = Not at all Total TI-7 score (0-4 normal; 5-9 mild; 10-14 moderate; 15-21 severe): 0 Source: Developed by Drs. Javier Fontenot, Sarah Church, Jeffrey Ortiz and colleagues, with an educational surekha from [employer]. Physical exam (Primary Care) Vital Signs: Oxygen Delivery Method Room Air 07/26/24 16:39 Tobacco/Smoking Status: Tobacco use Status Tobacco use date assessed 07/26/24 07/26/24 16:39 Patient Tobacco Use Status Former Tobacco user 07/26/24 16:39 Tobacco use type Cigarette 07/26/24 16:39 e-Cigarette/Vaping Use Never Used 07/26/24 16:39 PHQ-9: PHQ-9 Score PHQ-9: Total score 2 07/26/24 18:07 Thrive Assessment: Date of Thrive Assessment Date Thrive assessed 07/26/24 07/26/24 16:39 Currently or been in a relationship where the following occur: No concerns reported Telehealth Telehealth Telehealth Platform: Telephone Location of provider rendering services: practice address Location of patient: address on file Patient Identification confirmed using: Name, : Yes Telehealth method: voice only Patient verbally consented to treatment: Yes Patient verbally consented to billing insurance company: Yes Patient informed of any privacy concerns related to visit: Yes Minutes spent on Phone/Video with Pt.: 15 Coding Level of Care Code Tele Est Pt Level 3 (36492) Diagnoses Otitis media, left H66.92 Assessment & Plan Assessment & Plan (1) Otitis media, left: Code(s): H66.92 - Otitis media, unspecified, left ear Category: Medical Plan History of Present Illness The patient is a 43-year-old female presenting with symptoms suggestive of an ear infection in the left ear. She reports a sensation of blockage and occasional pain in the left ear, which has persisted for a couple of weeks. The patient has been using home remedies such as Vicks on a cotton ball and nasal rinses, but the symptoms persist. The patient denies any fever or sore throat but reports feeling congested, which she associates with her history of sinus infections. She has a history of allergies and is currently taking Zyrtec and Flonase for management. The patient has a history of Polycystic Ovary Syndrome (PCOS), Gastroesophageal Reflux Disease (GERD), hypercholesterolemia, asthma, and impaired glucose tolerance. She was previously diagnosed with COVID-19 in February and follows up for weight management. Recent blood work in January indicated mild anemia with a hemoglobin level of 11.7 g/dL, and iron deficiency anemia was noted. Her blood sugar was mildly elevated, and she has hypertriglyceridemia with a level of 277 mg/dL. Review of Systems - Ears: Reports sensation of blockage and occasional pain in the left ear. Denies discharge. - Respiratory: Reports congestion. Denies fever or sore throat. Plan The patient will be prescribed a Z-Samuel azithromycin) due to her allergy to penicillin, with instructions to take two tablets on the first day followed by one tablet daily for the next four days. If symptoms do not improve, she is advised to call back for further evaluation, which may include an examination of the ear. The patient is advised to continue her current allergy management regimen, including Zyrtec and Flonase, to address her congestion and potential allergy- related symptoms. Patient was informed and verbally consented to the use of an ambient scribe for clinic note documentation during this visit. Discussion Notes I discussed with the patient the likelihood of an ear infection and the plan to treat it with a Z-Samuel due to her penicillin allergy. I advised her to monitor her symptoms and to contact us if there is no improvement, as further examination may be necessary. We also reviewed her current allergy management and the importance of continuing her medications to alleviate congestion. Patient Instructions - Take the Z-Samuel as prescribed: two tablets on the first day, then one tablet daily for the next four days. - Continue taking Zyrtec and Flonase as part of your allergy management. - Call the office if your symptoms do not improve or if they worsen. Medications: New azithromycin (Zithromax) For 250 mg dose pack: take 500 mg today (day 1), then 250 mg for 4 days (days 2-5) PO 6 tabs 0RF H66.92 - Otitis media, unspecified, left ear
--- OUTSIDE RECORDS SUMMARY | 2024-07-26 17:59 | XMS_ITS | Continuity of Care Document ---
Author Organization [facility] Address [address] [place] [id number] Social History Not on File Plan of Treatment Not on file
== END 2024-07-26 18:09 | disposition home or self-care (01) ==
LOC: HO.HMCH 16:36
PROVIDERS: PCP Internal Medicine; Visit Provider Internal Medicine
DX: H66.92 Otitis media, unspecified, left ear (principal)

== ENCOUNTER → 2024-07-26 16:36 | Outpatient (BNVA) | payer OTHER, SELFPAY | PROVIDERS: PCP Internal Medicine; Visit Provider Internal Medicine | DX: Z13.89 Encounter for screening for other disorder (principal) ==

== ENCOUNTER 2024-09-03 12:52 | Outpatient (AMB) | payer OTHER, SELFPAY ==
--- NOTE | 2024-09-03 13:04 | MHC.PC.OV ---
Vital Signs 09/03/24 13:06 Height 5 ft 3 in Weight 156 lb 4 oz BMI 27.7 BP 120/62 Blood Pressure Location Lt brachial Position Sitting Pulse 102 H Pulse Source Pulse Oximeter Temp 97.1 F Temp Source Temporal Artery Scan Pulse Oximetry (%) 99 Oxygen Delivery Method Room Air Intake Visit Reasons: Popping sound in ears Intake Note: Patient is here to follow up on popping sound in ears. Property [employer] Casualty Insurance Agent Required: No It Infrastructure Consultant: Not Required per policy Accompanied by: Self / Same As Patient Allergies amoxicillin (AMOXICILLIN) Allergy (Severe, Verified 09/03/24 13:06) HIVES doxycycline Allergy (Unknown, Verified 09/03/24 13:06) Rash Medication List - Last Reconciled 09/03/24 by Lisbeth Paige MD albuterol sulfate 90 mcg/actuation (Ventolin HFA) 2 puffs inhalation Q4-6H PRN ascorbate calcium (vitamin C) 500 mg PO DAILY cetirizine (Zyrtec) 10 mg PO DAILY PRN cyanocobalamin (vitamin B-12) 1,000 mcg PO .once a week ferrous gluconate 236 mg PO DAILY fluticasone propionate 50 mcg/actuation (Flonase Allergy Relief) 1 spray intranasal DAILY 14 days lansoprazole 30 mg PO DAILY metoprolol succinate ER 25 mg PO DAILY 90 days multivitamin tabs PO tirzepatide (weight loss) (Zepbound) 7.5 mg (0.5 mL) subcut QWEEK vit C-vit R0-K-vkrd-elderberry 90 mg-3.15 mcg- 3.35 mg-150 mg (Airborne Elderberry Complex) tabs PO Tobacco use date assessed: 07/26/24 Dental Screening Dental Screen Date: 07/26/24 HPI Popping sound in ears HPI Details nausea 2 week , 1 months popping ear treated with z rio , no fevers, no sore throat, , no cough and no sob,, PFSH Medical History (Updated 09/03/24 @ 13:38 by Lisbeth Paige MD) Hip pain BMI 36.0-36.9,adult Annual physical exam Epidermal cyst Asthma, allergic Post-operative nausea and vomiting Duodenal adenoma Obesity (BMI 30-39.9) Trochanteric bursitis of left hip GERD (gastroesophageal reflux disease) Familial adenomatous polyposis Splenomegaly Migraine with aura PCOS (polycystic ovarian syndrome) Polyp of duodenum Obesity SVT (supraventricular tachycardia) Surgical History History of delivery Hx of endoscopy History of colonoscopy Family History Father Brain tumor Mother Colon polyp Maternal Uncle Colon polyp Maternal Aunt Colon polyp Myocardial infarct Substance abuse Pancreatitis Father No problems noted. Son No problems noted. Daughter No problems noted. 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 1. Little interest or pleasure in doing things: several days 2. Feeling down, depressed, or hopeless: several days 3. Trouble falling or staying asleep, or sleeping too much: several days 4. Feeling tired or having little energy: several days 5. Poor appetite or overeating: several days 6. Feeling bad about yourself - or that you are a failure or have let yourself or your family down: several days 7. Trouble concentrating on things, such as reading the newspaper or watching television: several days 8. Moving or speaking so slowly that other people could have noticed. Or the opposite - being so fidgety or restless that you have been moving around a lot more than usual: not at all 9. Thoughts that you would be better off or of hurting yourself in some way: not at all Total score: 7 Depression Screening Interpretation: Positive Depression Screening Done: Yes Source: Developed by Drs. Javier Fontenot, Sarah Church, Jeffrey Ortiz and colleagues, with an educational surekha from [facility]. Thrive Questionnaire Date Thrive assessed: 09/03/24 I am a: Patient What is your living situation today?: I have a steady place to live Within the past 12 months, did the food you bought not last and you didn't have the money to get more?: Never true Within the past 12 months, did you worry whether your food would run out before you got money to buy more?: Never true Do you have trouble paying for medicines?: No Do you have trouble getting transportation to medical appointments?: No Do you have trouble paying your heating and electricity bill?: No Do you have trouble taking care of your child, family member or friend?: No Do you have trouble with day-to-day activities such as bathing, preparing meals, shopping, managing finances, etc.?: No Are you currently unemployed and looking for a job?: No Are you interested in more education?: No Please select the resources that you would like help with: None Currently or been in a relationship where the following occur: No concerns reported THRIVE Score: 0 AUDIT C Alcohol Use Questionnaire (AUDIT-C) 1. How often do you have a drink containing alcohol?: Monthly or less Total Score: 1 TI-7 AMB Questionnaire TI-7 Date TI - 7 assessed: 09/03/24 Feeling nervous, anxious, or on edge: 1 = Several days Not being able to stop or control worryin = Several days Worrying too much about different things: 1 = Several days Trouble relaxin = Several days Being so restless that it is hard to sit still: 1 = Several days Becoming easily annoyed or irritable: 1 = Several days Feeling afraid as if something awful might happen: 1 = Several days Total TI-7 score (0-4 normal; 5-9 mild; 10-14 moderate; 15-21 severe): 7 Source: Developed by Drs. Javier Fontenot, Sarah Church, Jeffrey Ortiz and colleagues, with an educational surekha from [facility]. Physical exam (Primary Care) Vital Signs: Last Vital Signs Temp 97.1 F 09/03/24 13:06 Pulse 102 H 09/03/24 13:06 BP 120/62 09/03/24 13:06 Pulse Ox 99 09/03/24 13:06 Oxygen Delivery Method Room Air 09/03/24 13:06 BMI result Body Mass Index 27.7 Tobacco/Smoking Status: Tobacco use Status Tobacco use date assessed 07/26/24 09/03/24 13:10 Patient Tobacco Use Status Former Tobacco user 09/03/24 13:10 Tobacco use type Cigarette 09/03/24 13:10 e-Cigarette/Vaping Use Never Used 09/03/24 13:10 PHQ-9: PHQ-9 Score PHQ-9: Total score 7 09/03/24 13:38 Depression Screening Interpretation: Positive Thrive Assessment: Date of Thrive Assessment Date Thrive assessed 09/03/24 09/03/24 13:10 Currently or been in a relationship where the following occur: No concerns reported Const General: alert; No acute distress Eyes Conjunctivae: conjunctivae normal Resp Auscultation: clear to auscultation bilaterally Cardio Rate: regular rate Rhythm: regular rhythm GI Inspection: Yes normal to inspection Extrem General: Yes normal to inspection and No edema Coding Level of Care Code Est Pt Level 4 (75226) Diagnoses Overweight (BMI 25.0-29.9) E66.3 Impaired glucose tolerance R73.02 Hypertriglyceridemia E78.1 Gastroesophageal reflux disease without esophagitis K21.9 Esophagitis presence: without esophagitis Assessment & Plan Assessment & Plan (1) Overweight (BMI 25.0-29.9): Code(s): E66.3 - Overweight Category: Medical Plan: Continue with diet and exercise. (2) Impaired glucose tolerance: Code(s): R73.02 - Impaired glucose tolerance (oral) Category: Medical Plan: Decrease the amount of carbohydrate intake, pasta, bread, rice and potatoes are all sugar and that is aside from all the sweet stuff, remember that fruits are good but they are Sweet also. (3) Hypertriglyceridemia: Code(s): E78.1 - Pure hyperglyceridemia Category: Medical Plan: Avoid fried foods, chicken skin, eggs, butter margarine, pastries and meat. Be it pork or beef they have a lot of cholesterol (4) GERD (gastroesophageal reflux disease): Code(s): K21.9 - Gastro-esophageal reflux disease without esophagitis Category: Medical Qualifiers: Esophagitis presence: without esophagitis Qualified Code(s): K21.9 - Gastro-esophageal reflux disease without esophagitis Plan: Avoid the foods that causes that usually spicy foods, tomato products, juices, coffee, soda and foods that your sensitive to. After eating do not lie down, allow 3-4 hours before in lie down. And keep the head of bed above 30 degrees to avoid the acid from going up. Plan History of Present Illness The patient is a 43-year-old female presenting for a follow-up visit to address multiple chronic conditions and preventative care. The patient has a history of Polycystic Ovary Syndrome (PCOS), Gastroesophageal Reflux Disease (GERD), and Supraventricular Tachycardia (SVT). She has experienced a significant weight loss of 50 pounds, which is noteworthy given her previous overweight status. The patient also has a history of hypercholesterolemia and asthma, with impaired glucose tolerance noted. Her last blood work in January showed mild anemia, and she has been managing this with vitamin C and iron supplementation. Recently, the patient has been experiencing nausea, which she attributes to her current medication regimen, specifically Zepbound. She reports that the nausea has been persistent for a couple of weeks, accompanied by episodes of vertigo. The patient has a history of Eustachian Tube Dysfunction, which has been causing pressure differences and popping sensations in her ears. She has been using allergy medications to manage these symptoms. Health Maintenance - Mammogram is due for screening purposes. - Blood work to monitor anemia and glucose levels. Social History - Exercise: Previously increased activity, currently reduced due to nausea. - Weight management: Significant weight loss achieved, currently on Zepbound. Review of Systems - General: Reports significant weight loss, nausea, and vertigo. - Cardiovascular: Denies chest pain or palpitations. - Respiratory: Denies dyspnea or cough. - Gastrointestinal: Reports constipation, denies heartburn. - Neurological: Reports vertigo, denies headaches. - Ears: Reports popping sensation, denies ear pain. Physical Exam - Ears: No signs of infection, pressure differences noted. - Oral: No pain on swallowing, dry mouth observed. - Abdomen: No tenderness or pain on palpation. Results - Labs: Previous blood work showed mild anemia. Plan The patient will continue with her current diet and exercise regimen to manage her weight and improve overall health. For her nausea, a prescription for ondansetron has been provided to alleviate symptoms, especially considering her upcoming social commitments. Blood work will be repeated to monitor anemia and glucose levels, and a urine test will be conducted to rule out any additional concerns. The patient is advised to maintain her current medication regimen, including the use of allergy medications to manage Eustachian Tube Dysfunction symptoms. Follow-up on mammogram screening is recommended as part of her preventative care. Patient was informed and verbally consented to the use of an ambient scribe for clinic note documentation during this visit. Discussion Notes I discussed with the patient the importance of continuing her current diet and exercise regimen to manage her weight effectively. We reviewed the potential side effects of her current medications, particularly Zepbound, and addressed her concerns about nausea by prescribing ondansetron. I recommended repeating blood work to monitor her anemia and glucose levels and advised on the importance of completing her mammogram screening. Patient Instructions - Continue with your current diet and exercise routine. - Take ondansetron as prescribed for nausea relief. - Schedule and complete your mammogram screening. - Follow up with blood work to monitor anemia and glucose levels. Orders: Orders Thyroid Stimulating Hormone Today D64.9 - Anemia, unspecified Complete Blood Count Auto Diff Today D64.9 - Anemia, unspecified Comprehensive Met. Panel Today D64.9 - Anemia, unspecified Ferritin Today D64.9 - Anemia, unspecified Free T4 (Free Thyroxine) Today D64.9 - Anemia, unspecified Reticulocyte Count Today D64.9 - Anemia, unspecified IRON PROFILE Today D64.9 - Anemia, unspecified Vitamin B12 and Folate Today D64.9 - Anemia, unspecified UA CC w/rflx Micro + Cult Today D64.9 - Anemia, unspecified, R30.0 - Dysuria Medications: New ondansetron 4 mg PO Q8H PRN 14 tabs 0RF nausea and vomiting D64.9 - Anemia, unspecified tirzepatide (weight loss) (Zepbound) 7.5 mg (0.5 mL) subcut QWEEK 2 mL 0RF Discontinued semaglutide for 4 weeks Discontinued Reason: Change Referral Type 0.25 mg (0.368 mL) subcut QWEEK 3 mL 0RF
[2024-09-03 13:06] VITALS: BP 120/62; PULSE 102; TEMP 36.2; O2SAT 99; BMI 27.7
== END 2024-09-03 13:51 | disposition home or self-care (01) ==
LOC: HO.HMCH 12:53
PROVIDERS: PCP Internal Medicine; Visit Provider Internal Medicine
DX: E66.3 Overweight (principal); R73.02 Impaired glucose tolerance (oral); E78.1 Pure hyperglyceridemia; K21.9 Gastro-esophageal reflux disease without esophagitis

== ENCOUNTER 2024-09-03 12:52 | Outpatient (REF) | payer OTHER, SELFPAY ==
[2024-09-03 14:12] LABS: MANUAL DIFF FLAG NO
[2024-09-03 14:25] LABS: Hematocrit 43.3 % (37.0-47.0); Hemoglobin 15.3 g/dl (12.0-16.0); Imm Gran Abs Auto 0.03 X10*3/uL (0.00-0.03); Imm Gran Pct Auto 0.3 % (0.0-0.4); Lymphocytes Absolute Auto 1.1 X10*3/uL (1.2-4.9); Mean Corpuscular HGB Conc 35.3 g/dl (31.0-35.0); Mean Corpuscular Hemoglobin 30.1 pg (27.0-33.0); Mean Corpuscular Volume 85.1 fL (80.0-98.0); NRBC Abs Auto 0.000 X10*3/uL (0.0-0.012); NRBC Pct Auto 0.0 /100WBC (0.0-0.2); Platelet Count 188 X10*3/uL (160-400); Red Blood Count 5.09 X10*6/uL (4.20-5.50); Reticulocytes Absolute 0.151 X10*6/uL (0.026-0.095); White Blood Count 10.0 X10*3/uL (4.8-10.8)
[2024-09-03 14:55] LABS: Alanine Aminotransferase 7 U/L (0-31); Albumin Level 4.8 g/dL (3.5-5.0); Alkaline Phosphatase 47 U/L (39-117); Anion Gap 13 (12-20); Aspartate Amino Transferase 16 U/L (5-31); Blood Urea Nitrogen 8 mg/dL (9-16); Calcium 9.1 mg/dL (8.4-10.2); Carbon Dioxide 25 mmol/L (22-29); Chloride 106 mmol/L (96-108); Estimated Glomerular Filt Rate > 60; Iron 69 mcg/dL (30-160); Percent Iron Saturation 26 % (15-50); Potassium 4.0 mmol/L (3.3-5.1); Sodium 140 mmol/L (135-145); Total Iron Binding Capacity 267 mcg/dL (228-428); Total Protein 7.0 g/dL (6.5-8.0); Unsaturated Iron Binding 198 ug/dL
[2024-09-03 15:13] LABS: Ferritin 42 ng/mL (10-250); Free T4 (Free Thyroxine) 1.06 ng/dL (0.71-1.85); Thyroid Stimulating Hormone 0.68 uIU/mL (0.32-4.0)
[2024-09-03 15:22] LABS: Folate 6.9 ng/mL (> or = 4.0); Vitamin B12 754 pg/mL (200-900)
== END 2024-09-03 12:53 | disposition home or self-care (01) ==
LOC: HO.LAB 12:52
PROVIDERS: PCP Internal Medicine; Visit Provider Internal Medicine
DX: E66.3 Overweight (principal); R73.02 Impaired glucose tolerance (oral); E78.1 Pure hyperglyceridemia; K21.9 Gastro-esophageal reflux disease without esophagitis; D64.9 Anemia, unspecified; Z13.31 Encounter for screening for depression; Z13.39 Encounter for screening examination for other mental health and behavioral disorders
CPT/HCPCS: 36415; 80053; 82607; 82728; 82746; 83540; 84439; 84443; 85025; 85045; 96127

== ENCOUNTER 2024-09-07 08:25 | Outpatient (REF) | payer OTHER, SELFPAY ==
--- NOTE | ~2024-09-07 | MM_ITS ---
EXAMINATION: MM SCREENING DIGITAL BREAST TOMOSYNTHESIS, BILATERAL CLINICAL INFORMATION: Screening. Asymptomatic. COMPARISON: Comparison made to multiple prior, most recent September 02, 2023, and most remote April 15, 2020. TECHNIQUE: Digital breast tomosynthesis is performed in both the craniocaudal and mediolateral oblique views along with computer-aided detection (CAD). Synthesized 2D images are generated from the tomosynthesis. FINDINGS: BREAST COMPOSITION: There are scattered areas of fibroglandular density (ACR BI-RADS breast composition Category b). RIGHT BREAST: No significant masses, suspicious calcifications or other abnormalities are seen. LEFT BREAST: - 2.0 cm asymmetry in the upper breast on the MLO view at approximately 9.4 cm from the nipple could represent a reactive lymph node. - Asymmetry in the subareolar region on the MLO view. -Small asymmetry in the lateral breast at 5.3 cm from the nipple on the CC view - No suspicious calcifications are seen. MM/MM tomosynthesis screening BI IMPRESSION: RIGHT BREAST: Negative, no mammographic evidence of malignancy. Normal interval follow-up is recommended in 12 months. LEFT BREAST: - Asymmetry in the upper breast on MLO view at 9.4 cm the nipple. - Asymmetry in the subareolar region on the MLO view. - Asymmetry in the lateral breast at 5.3 cm from the nipple on the CC view ASSESSMENT: BI-RADS 0 - Incomplete: Needs additional Imaging. RECOMMENDATION: 1. Additional views of the left breast 2. Targeted ultrasound if warranted after review of the additional views. 3. Radiology department staff will contact the patient for additional imaging. FOLLOW-UP: Additional Imaging required This examination should not preclude the clinical evaluation of a suspicious palpable abnormality. This patient's information was entered into a reminder system with a target due date for their next mammogram. Electronically signed by: Sara Toscano MD 09/14/2024 04:48 PM EDT
[2024-09-07 09:19] LABS: Appearance Urine Clear; Glucose Urine UA Negative (Negative); PH 6.0 (5.0-9.0); Specific Gravity - Urine 1.010 (1.005-1.025)
== END 2024-09-07 08:26 | disposition home or self-care (01) ==
LOC: HO.MAMMO 08:25
PROVIDERS: PCP Internal Medicine; Visit Provider Internal Medicine
DX: R30.0 Dysuria (principal); D64.9 Anemia, unspecified; Z12.31 Encounter for screening mammogram for malignant neoplasm of breast
CPT/HCPCS: 77063; 77067; 81003

== ENCOUNTER → 2024-09-07 08:30 | Outpatient (BNV) | payer OTHER, SELFPAY | PROVIDERS: PCP Internal Medicine; Visit Provider Radiology Body Imaging | DX: Z12.31 Encounter for screening mammogram for malignant neoplasm of breast (principal) | CPT/HCPCS: 77063; 77067 ==

== ENCOUNTER 2024-09-21 07:13 | Outpatient (REF) | payer OTHER, SELFPAY ==
--- NOTE | ~2024-09-21 | MM_ITS ---
EXAMINATIONS: 1. MM DIAGNOSTIC DIGITAL BREAST TOMOSYNTHESIS, LEFT 2. Targeted ultrasound of the left breast CLINICAL INFORMATION: Callback from screening for left breast findings: -2.0 cm asymmetry in the upper breast on MLO view at 9.4 cm from the nipple - Asymmetry in the subareolar region on the MLO view. - Asymmetry in the lateral breast on the CC view. COMPARISON: September 07, 2024 TECHNIQUE: Digital breast tomosynthesis is performed in both full-field ML 90 degrees view along with computer-aided detection (CAD). Synthesized 2D images are generated from the tomosynthesis. Spot compression tomosynthesis images were also obtained. FINDINGS: BREAST COMPOSITION: There are scattered areas of fibroglandular density (ACR BI-RADS breast composition Category b). LEFT BREAST: - Approximately 2.0 cm asymmetry in the upper breast persists on today's images at about 11.4 cm from the nipple. Targeted ultrasound of the right breast was performed at the location of the mammographic finding. The survey shows an approximately 2.0 x 0.7 x 1.6 cm heterogeneous hypoechoic/isoechoic solid mass at 2 o'clock position at 11 cm from the nipple. Minimal internal vascularity demonstrated with color Doppler evaluation. - Asymmetry in the subareolar region on the MLO view does not persist on today's additional images and most likely represented overlapping fibroglandular breast tissue. No dedicated imaging follow-up is needed. - Asymmetry in the lateral breast middle depth on the CC view does not persist on today's additional images and most likely represented overlapping fibroglandular breast tissue. No dedicated imaging follow-up is needed. MM/MM tomosynthesis added views L IMPRESSION: LEFT BREAST: 2.0 cm hypoechoic/isoechoic solid mass at 2 o'clock position at 11 cm from the nipple correlating with the mammographic finding on the MLO view. Suspicious findings. On ultrasound-guided core biopsy is recommended. ASSESSMENT: BI-RADS 4 - Suspicious finding RECOMMENDATION: Biopsy recommended Results were discussed with the patient at the completion of the studies. This patient's information was entered into a reminder system with a target due date for their next mammogram. Electronically signed by: Sara Toscano MD 09/21/2024 09:11 AM EDT
== END 2024-09-21 07:14 | disposition home or self-care (01) ==
LOC: HO.MAMMO 07:13
PROVIDERS: PCP Internal Medicine; Visit Provider Internal Medicine
DX: Z12.31 Encounter for screening mammogram for malignant neoplasm of breast (principal); N64.89 Other specified disorders of breast
CPT/HCPCS: 76642; 77061; 77065

== ENCOUNTER → 2024-09-21 07:30 | Outpatient (BNV) | payer OTHER, SELFPAY | PROVIDERS: PCP Internal Medicine; Visit Provider Radiology Body Imaging | DX: N63.21 Unspecified lump in the left breast, upper outer quadrant (principal); R92.8 Other abnormal and inconclusive findings on diagnostic imaging of breast | CPT/HCPCS: 76642; 77061; 77065 ==

== ENCOUNTER 2024-10-04 08:17 | Outpatient (AMB) | payer OTHER, SELFPAY ==
--- NOTE | 2024-10-04 08:25 | A.OFFVIS_ITS ---
Vital Signs 10/04/24 08:32 Height 5 ft 3 in Weight 152 lb BMI 26.9 BP 121/59 L Blood Pressure Location Rt brachial Position Sitting Pulse 87 Intake Visit Reasons: US Breast bx (L) breast 2O'Clock are Intake Note: Patient is seen in office for US biopsy CONSULT for Lt breast mass. Patient c/o: denies lumps, tenderness, nipple discharge. No personal or family hx of breast CA. MM& LT br US: 09-21-2024 Biopsy: 10-04-24 @ 9am [employer] Required: No Accompanied by: sister Mena Ramirez Allergies amoxicillin (AMOXICILLIN) Allergy (Severe, Verified 10/04/24 08:34) HIVES doxycycline Allergy (Unknown, Verified 10/04/24 08:34) Rash Medication List - Last Reconciled 10/04/24 by Braeden Case MD albuterol sulfate 90 mcg/actuation (Ventolin HFA) 2 puffs inhalation Q4-6H PRN ascorbate calcium (vitamin C) 500 mg PO DAILY cyanocobalamin (vitamin B-12) 1,000 mcg PO .once a week ferrous gluconate 236 mg PO DAILY fluticasone propionate 50 mcg/actuation (Flonase Allergy Relief) 1 spray intranasal DAILY 14 days lansoprazole 30 mg PO DAILY loratadine (Claritin) 10 mg PO DAILY metoprolol succinate ER 25 mg PO DAILY 90 days multivitamin tabs PO ondansetron 4 mg PO Q8H PRN tirzepatide (weight loss) (Zepbound) 7.5 mg (0.5 mL) subcut QWEEK vit C-vit N6-J-nzpn-elderberry 90 mg-3.15 mcg- 3.35 mg-150 mg (Airborne Elderberry Complex) tabs PO HPI HPI US Breast bx (L) breast 2O'Clock are: Details: 43 year old female referred for left breast mass. She had undergone mammogram for screening last month and she was noted to have symmetry in the upper breast on the left. She was therefore brought in for diagnostic exam and ultrasound. There was note of a 2 cm asymmetry in the upper breast. Targeted ultrasound showed this to be 2.0 x 0.7 x 1.6 cm the colic/hi isoechoic solid mass at the 2 o'clock position of the left breast. An ultrasound-guided biopsy was therefore recommended She denies any palpable breast mass. Her menarche was at age of 12. She had for her 1st at age of 27. She had 2 pregnancies. She still has her periods. She did have polycystic ovarian syndrome and irregular periods when she was much younger. She denies any family history of breast cancer. [facility] Medical History Left breast mass Hip pain BMI 36.0-36.9,adult Annual physical exam Epidermal cyst Asthma, allergic Post-operative nausea and vomiting Duodenal adenoma Obesity (BMI 30-39.9) Trochanteric bursitis of left hip GERD (gastroesophageal reflux disease) Familial adenomatous polyposis Splenomegaly Migraine with aura PCOS (polycystic ovarian syndrome) Polyp of duodenum Obesity SVT (supraventricular tachycardia) Surgical History History of delivery Hx of endoscopy History of colonoscopy Family History Father Brain tumor Mother Colon polyp Maternal Uncle Colon polyp Maternal Aunt Colon polyp Myocardial infarct Substance abuse Pancreatitis Father No problems noted. Son No problems noted. Daughter No problems noted. 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 Current occupational exposures/hazards: No Sexual orientation: Straight/Heterosexual Gender identity: Female Cognitive needs: No Hearing needs: No Vision needs: No Female Reproductive History Menstrual Age of Menarche: 12 Review of Systems Const Denies chills and Denies fever(s) Card Denies chest pain, Denies dyspnea and Denies dyspnea on exertion Resp Denies cough, Denies dyspnea and Denies dyspnea on exertion GI Denies hematochezia and Denies change in bowel habits Denies hematuria Musc Denies back pain and Denies limited range of motion Neuro Denies focal weakness and Denies convulsions Psych Denies depression and Denies mood swings Physical Exam Vital Signs: Last Vital Signs Pulse 87 08/25/25 08:32 BP 121/59 L 08/25/25 08:32 BMI result Body Mass Index 26.9 Const General: comfortable and no acute distress Orientation/consciousness: patient oriented x3 Neck Neck: Yes no lymphadenopathy Chest Other: No palpable breast masses, no nipple or skin changes, no axillary lymphadenopathy Resp Auscultation: clear to auscultation bilaterally Cardio Rhythm: regular rhythm GI Palpation (GI): Soft to palpation, nontender and no guarding Neuro General: patient oriented x3 Assessment & Plan Assessment & Plan (1) Left breast mass: Code(s): N63.20 - Unspecified lump in the left breast, unspecified quadrant Category: Medical Plan: She has this heterogenous hypoechoic/isoechoic solid mass at the 2 o'clock position of the left breast, 2.0 x 0.7 x 1.6 cm. An ultrasound biopsy was therefore recommended. I explained to her the technique of this procedure. I will see her in the office after her biopsy to discuss the path report She understands the plan well. Orders: Orders US breast ndl core biopsy LT 10/01/24 N63.20 - Unspecified lump in the left breast, unspecified quadrant Coding Level of Care Code New Pt Level 3 (40709) Diagnoses Left breast mass N63.20
[2024-10-04 08:32] VITALS: BP 121/59; PULSE 87; BMI 26.9
== END 2024-10-04 08:50 | disposition home or self-care (01) ==
LOC: HO.HGS 08:18
PROVIDERS: PCP Internal Medicine; Visit Provider Surgery
DX: N63.20 Unspecified lump in the left breast, unspecified quadrant (principal)
CPT/HCPCS: 99213

== ENCOUNTER 2024-10-04 08:54 | Outpatient (REF) | payer OTHER, SELFPAY ==
--- NOTE | ~2024-10-04 | MM_ITS ---
Procedure/Examination: US GUIDED NEEDLE CORE BREAST BIOPSY LEFT, MG BREAST DIAGNOSTIC UNILATERAL LEFT CLINICAL INFORMATION: Patient is status post diagnostic mammogram/ultrasound of the left breast on September 21, 2024 that recommended an ultrasound guided needle core biopsy of 2.0 cm solid mass at 2 o'clock position at 11 cm from the nipple. COMPARISON: Left Mammogram/ultrasound on September 21, 2024. FINDINGS: Proper informed consent is obtained from the patient after discussion of the procedure, potential risks and complications, and alternatives. Patient was given an opportunity for questions. The patient appeared to understand. The patient consented to the procedure and signed the consent form. GUIDANCE: Ultrasound-guided; aseptic technique. LESION: Solid-appearing mass at 2 o'clock position 11 cm from the nipple. APPROACH: Lateral. ANESTHESIA: 7 cc of lidocaine 1% buffered with Sodium Bicarbonate 8.4% (9cc: 1cc). NEEDLE: 14-gauge Bard Marquee biopsy device with co-axial introducer. CORES: 4. CLIP: Mammotome shape: open coil. POST PROCEDURE UNILATERAL DIGITAL MAMMOGRAM: The post biopsy mammogram is performed in separate room using separate digital mammography equipment from the biopsy procedure. ML 90 degrees, MLO and XCCL views are obtained. The open coil clip marker is in satisfactory position. No gross hematoma. The patient tolerated the procedure well. No immediate complications. Home instructions reviewed with the patient. Final pathology results are pending. ASSESSMENT: Post procedure - Marker Placement MM/MM diagnostic mammo unilat LT IMPRESSION: 1. Status post ultrasound-guided core biopsy left breast solid mass at 2 o'clock position 11 cm from the nipple. 2. Clip placed: Mammotome shape: open coil. 3. Pathology pending. An addendum report will be issued. Electronically signed by: Sara Toscano MD 10/04/2024 11:50 AM EDT
[2024-10-04] MEDS: Lidocaine HCl 1 % 20 ML VIAL 9 ML SUBCUT (10:24)
== END 2024-10-04 08:55 | disposition home or self-care (01) ==
LOC: HO.MAMMO 08:54
PROVIDERS: PCP Internal Medicine; Visit Provider Surgery
DX: Z12.31 Encounter for screening mammogram for malignant neoplasm of breast (principal); N63.21 Unspecified lump in the left breast, upper outer quadrant
CPT/HCPCS: 19083; 77062; 77065; 88305; 88341; 88342; 88360; A4648; J2003

== ENCOUNTER → 2024-10-04 09:00 | Outpatient (BNV) | payer OTHER, SELFPAY | PROVIDERS: PCP Internal Medicine; Visit Provider Radiology Body Imaging | DX: N63.21 Unspecified lump in the left breast, upper outer quadrant (principal) | CPT/HCPCS: 19083; 77065 ==

== ENCOUNTER 2024-10-13 10:09 | Outpatient (AMB) | payer OTHER, SELFPAY ==
--- NOTE | 2024-10-13 10:13 | MHC.OFFVIS ---
Vital Signs 10/13/24 10:18 Height 5 ft 3 in Weight 150 lb BMI 26.6 BP 119/59 L Blood Pressure Location Rt brachial Position Sitting Pulse 75 Intake Visit Reasons: s/p US Breast bx (L) breast 2O'Clock are Intake Note: Patient here s/p US left breast bx 2 o'clock on 10-04-2024. Patient c/o: no concerns. Reports breast bx site healing well. Account Manager Relief Required: No Accompanied by: Spouse Allergies amoxicillin (AMOXICILLIN) Allergy (Severe, Verified 10/13/24 10:18) HIVES doxycycline Allergy (Unknown, Verified 10/13/24 10:18) Rash Medication List - Last Reconciled 10/13/24 by Braeden Case MD albuterol sulfate 90 mcg/actuation (Ventolin HFA) 2 puffs inhalation Q4-6H PRN ascorbate calcium (vitamin C) 500 mg PO DAILY cyanocobalamin (vitamin B-12) 1,000 mcg PO .once a week ferrous gluconate 236 mg PO DAILY fluticasone propionate 50 mcg/actuation (Flonase Allergy Relief) 1 spray intranasal DAILY 14 days lansoprazole 30 mg PO DAILY loratadine (Claritin) 10 mg PO DAILY metoprolol succinate ER 25 mg PO DAILY 90 days multivitamin tabs PO ondansetron 4 mg PO Q8H PRN tirzepatide (weight loss) (Zepbound) 7.5 mg (0.5 mL) subcut QWEEK vit C-vit Y9-S-xusw-elderberry 90 mg-3.15 mcg- 3.35 mg-150 mg (Airborne Elderberry Complex) tabs PO HPI HPI s/p US Breast bx (L) breast 2O'Clock are: Details: She underwent an ultrasound biopsy of the left breast last 10/04/2024. She tolerated procedure well. She says she did not have any problems after the biopsy. She did not have any hematoma. [facility] Medical History Left breast mass Hip pain BMI 36.0-36.9,adult Annual physical exam Epidermal cyst Asthma, allergic Post-operative nausea and vomiting Duodenal adenoma Obesity (BMI 30-39.9) Trochanteric bursitis of left hip GERD (gastroesophageal reflux disease) Familial adenomatous polyposis Splenomegaly Migraine with aura PCOS (polycystic ovarian syndrome) Polyp of duodenum Obesity SVT (supraventricular tachycardia) Surgical History History of delivery Hx of endoscopy History of colonoscopy Family History Father Brain tumor Mother Colon polyp Maternal Uncle Colon polyp Maternal Aunt Colon polyp Myocardial infarct Substance abuse Pancreatitis Father No problems noted. Son No problems noted. Daughter No problems noted. 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 Current occupational exposures/hazards: No Sexual orientation: Straight/Heterosexual Gender identity: Female Cognitive needs: No Hearing needs: No Vision needs: No Female Reproductive History Menstrual Age of Menarche: 12 Review of Systems Const Denies chills and Denies fever(s) Card Denies chest pain and Denies dyspnea Resp Denies dyspnea Physical Exam Vital Signs: Last Vital Signs Pulse 75 10/13/24 10:18 BP 119/59 L 10/13/24 10:18 BMI result Body Mass Index 26.6 Const General: comfortable and no acute distress Chest Other: Biopsy site on the left breast well healed, no hematoma, no signs of infection Resp Effort & Inspection: normal respiratory effort Assessment & Plan Assessment & Plan (1) Left breast mass: Comment: Ultrasound September.0 cm hypoechoic/isoechoic solid mass at 2 o'clock position at 11 cm from the nipple correlating with the mammographic finding on the MLO view. Suspicious findings. On ultrasound-guided core biopsy is recommended. Biopsy Septemberreast, left mass at 2 o'clock, biopsy: Benign-appearing spindle cell lesion. See comment. Comment: The differential includes a myofibroblastoma, myoid hamartoma and leiomyoma Code(s): N63.20 - Unspecified lump in the left breast, unspecified quadrant Category: Medical Plan: Status post ultrasound needle biopsy. Her path report shows benign appearing spindle cell lesion. I explained the benign nature of the pathology. I told her that the radiologist recommended a follow up in 6 months She is to continue with a regular screening mammograms as well. I will see her again after her biopsy in 6 months. Orders: Orders US breast LT limited 6 Months N63.20 - Unspecified lump in the left breast, unspecified quadrant Coding Level of Care Code Est Pt Level 3 (45371) Diagnoses Left breast mass N63.20
[2024-10-13 10:18] VITALS: BP 119/59; PULSE 75; BMI 26.6
== END 2024-10-13 10:20 | disposition home or self-care (01) ==
LOC: HO.HGS 10:10
PROVIDERS: PCP Internal Medicine; Visit Provider Surgery
DX: N63.20 Unspecified lump in the left breast, unspecified quadrant (principal)
CPT/HCPCS: 99213

== ENCOUNTER 2024-11-12 15:57 | Outpatient (AMB) | payer OTHER, SELFPAY ==
--- NOTE | 2024-11-12 16:01 | A.OFFPC_ITS ---
Vital Signs 11/12/24 16:02 Height 5 ft 3 in Weight 144 lb BMI 25.5 BP 118/72 Blood Pressure Location Lt brachial Position Sitting Pulse 69 Pulse Source Pulse Oximeter Pulse Oximetry (%) 99 Oxygen Delivery Method Room Air Intake Visit Reasons: annuam exam Allergies amoxicillin (AMOXICILLIN) Allergy (Severe, Verified 11/12/24 16:03) HIVES doxycycline Allergy (Unknown, Verified 11/12/24 16:03) Rash Medication List - Last Reconciled 11/12/24 by Lisbeth Paige MD albuterol sulfate 90 mcg/actuation (Ventolin HFA) 2 puffs inhalation Q4-6H PRN ascorbate calcium (vitamin C) 500 mg PO DAILY cyanocobalamin (vitamin B-12) 1,000 mcg PO .once a week ferrous gluconate 236 mg PO DAILY fluticasone propionate 50 mcg/actuation (Flonase Allergy Relief) 1 spray intranasal DAILY 14 days lansoprazole 30 mg PO DAILY loratadine (Claritin) 10 mg PO DAILY metoprolol succinate ER 25 mg PO DAILY 90 days multivitamin tabs PO ondansetron 4 mg PO Q8H PRN tirzepatide (weight loss) (Zepbound) 5 mg subcut QWEEK vit C-vit M9-H-dpdr-elderberry 90 mg-3.15 mcg- 3.35 mg-150 mg (Airborne Elderberry Complex) tabs PO Tobacco use date assessed: 07/26/24 Dental Screening Dental Screen Date: 07/26/24 [facility] Medical History (Updated 11/12/24 @ 16:50 by Lisbeth Paige MD) Obesity Impaired fasting blood sugar Left breast mass Hip pain BMI 36.0-36.9,adult Annual physical exam Epidermal cyst Asthma, allergic Post-operative nausea and vomiting Duodenal adenoma Obesity (BMI 30-39.9) Trochanteric bursitis of left hip GERD (gastroesophageal reflux disease) Familial adenomatous polyposis Splenomegaly Migraine with aura PCOS (polycystic ovarian syndrome) Polyp of duodenum SVT (supraventricular tachycardia) Surgical History History of delivery Hx of endoscopy History of colonoscopy Family History (Updated 11/12/24 @ 16:57 by Lisbeth Paige MD) Father Brain tumor Mother Colon polyp Maternal Uncle Colon polyp Maternal Aunt Colon polyp Myocardial infarct Substance abuse Pancreatitis Lung cancer Father No problems noted. Son No problems noted. Daughter No problems noted. 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 1. Little interest or pleasure in doing things: several days 2. Feeling down, depressed, or hopeless: several days 3. Trouble falling or staying asleep, or sleeping too much: several days 4. Feeling tired or having little energy: several days 5. Poor appetite or overeating: several days 6. Feeling bad about yourself - or that you are a failure or have let yourself or your family down: several days 7. Trouble concentrating on things, such as reading the newspaper or watching television: several days 8. Moving or speaking so slowly that other people could have noticed. Or the opposite - being so fidgety or restless that you have been moving around a lot more than usual: not at all 9. Thoughts that you would be better off or of hurting yourself in some way: not at all Total score: 7 Depression Screening Interpretation: Positive Depression Screening Done: Yes Source: Developed by Drs. Javier Fontenot, Sarah Church, Jeffrey Ortiz and colleagues, with an educational surekha from [employer]. Thrive Questionnaire Date Thrive assessed: 09/03/24 I am a: Patient What is your living situation today?: I have a steady place to live Within the past 12 months, did the food you bought not last and you didn't have the money to get more?: Never true Within the past 12 months, did you worry whether your food would run out before you got money to buy more?: Never true Do you have trouble paying for medicines?: No Do you have trouble getting transportation to medical appointments?: No Do you have trouble paying your heating and electricity bill?: No Do you have trouble taking care of your child, family member or friend?: No Do you have trouble with day-to-day activities such as bathing, preparing meals, shopping, managing finances, etc.?: No Are you currently unemployed and looking for a job?: No Are you interested in more education?: No Please select the resources that you would like help with: None Currently or been in a relationship where the following occur: No concerns reported THRIVE Score: 0 AUDIT C Alcohol Use Questionnaire (AUDIT-C) 1. How often do you have a drink containing alcohol?: Monthly or less 2. How many drinks containing alcohol do you have on a typical day when you are drinking?: 1 or 2 3. How often do you have six or more drinks on one occasion?: Never Total Score: 1 TI-7 AMB Questionnaire TI-7 Date TI - 7 assessed: 09/03/24 Source: Developed by Drs. Javier Fontenot, Sarah Church, Jeffrey Ortiz and colleagues, with an educational surekha from [employer]. Review of Systems Const Denies poor appetite and Denies weakness Eyes Denies no additional complaints ENT Reports Normal hearing present, Denies dizziness, Denies nasal congestion, Denies tinnitus and Denies sore throat Card Denies chest pain, Denies syncope, Denies rapid heart rate and Denies dyspnea Resp Denies cough and Denies dyspnea GI Denies change in stool character, Reports constipation, Denies diarrhea, Denies nausea and Denies vomiting Denies urinary frequency, Denies difficulty voiding and Denies dysuria Neuro Reports Normal hearing present, Denies confusion, Denies dizziness, Denies syncope and Denies weakness Psych Denies confusion Physical exam (Primary Care) Vital Signs: Last Vital Signs Pulse 69 11/12/24 16:02 BP 118/72 11/12/24 16:02 Pulse Ox 99 11/12/24 16:02 Oxygen Delivery Method Room Air 11/12/24 16:02 BMI result Body Mass Index 25.5 Tobacco/Smoking Status: Tobacco use Status Tobacco use date assessed 07/26/24 11/12/24 16:06 Patient Tobacco Use Status Former Tobacco user 11/12/24 16:06 Tobacco use type Cigarette 11/12/24 16:06 e-Cigarette/Vaping Use Never Used 11/12/24 16:06 PHQ-9: PHQ-9 Score PHQ-9: Total score 7 11/12/24 16:51 Depression Screening Interpretation: Positive Thrive Assessment: Date of Thrive Assessment Date Thrive assessed 09/03/24 11/12/24 16:06 Currently or been in a relationship where the following occur: No concerns reported Const General: No confusion Orientation/consciousness: No confusion HENMT Head: Yes normocephalic Ears: external ears normal and TM's normal bilaterally Face and sinus: Yes normal facial exam Mouth: moist mucous membranes Throat: Yes tonsils normal Eyes Conjunctivae: conjunctivae normal Pupils: Equal, round and reactive pupils present and Pupil accommodation reflex normal Direct Ophthalmoscopy: normal light reflex Neck Neck: No lymphadenopathy Thyroid: Thyroid normal Chest Chest palpation & inspection: normal inspection of the chest Resp Effort & Inspection: normal respiratory effort and no audible wheezes Auscultation: clear to auscultation bilaterally, no crackles, no wheezes and lung sounds not diminished Cardio Rate: regular rate Rhythm: regular rhythm Peripheral pulses: radial pulses present and dorsalis pedis present GI Palpation (GI): no masses Auscultation: normal bowel sounds and normoactive bowel sounds Rectal Exam - Female: deferred Skin General skin exam: no rashes or lesions noted Rashes: no rashes Neuro General: No confusion Cranial nerves: Yes Equal, round and reactive pupils present and Yes Normal hearing present Cognition (Neuro): normal cognition Gait exam (Neuro): Normal gait present Motor exam (neuro): 5/5 motor strength present throughout Deep tendon reflexes (DTR's): Right brachioradialis reflex intensity grade: 2+, Left brachioradialis reflex intensity grade: 2+, Right patellar reflex intensity grade: 2+ and Left patellar reflex intensity grade: 2+ Extrem General: No edema Coding Level of Care Code Est Pt Prev Care 40-64y(13194) Diagnoses Annual physical exam Z00.00 Hypertriglyceridemia E78.1 Impaired glucose tolerance R73.02 Gastroesophageal reflux disease without esophagitis K21.9 Esophagitis presence: without esophagitis History of adenomatous polyp of colon Z86.010 Left breast mass N63.20 Assessment & Plan Assessment & Plan (1) Annual physical exam: Code(s): Z00.00 - Encounter for general adult medical examination without abnormal findings Category: Medical Plan: Patient is advised to eat healthy, keep well hydrated, keep active and have adequate sleep. (2) Hypertriglyceridemia: Code(s): E78.1 - Pure hyperglyceridemia Category: Medical Plan: Will continue to monitor with last cholesterol test in January (3) Impaired glucose tolerance: Code(s): R73.02 - Impaired glucose tolerance (oral) Category: Medical Plan: Decrease the amount of carbohydrate intake, pasta, bread, rice and potatoes are all sugar and that is aside from all the sweet stuff, remember that fruits are good but they are Sweet also. (4) GERD (gastroesophageal reflux disease): Code(s): K21.9 - Gastro-esophageal reflux disease without esophagitis Category: Medical Qualifiers: Esophagitis presence: without esophagitis Qualified Code(s): K21.9 - Gastro-esophageal reflux disease without esophagitis Plan: Avoid the foods that causes that usually spicy foods, tomato products, juices, coffee, soda and foods that your sensitive to. After eating do not lie down, allow 3-4 hours before in lie down. And keep the head of bed above 30 degrees to avoid the acid from going up. (5) History of adenomatous polyp of colon: Comment: 39-year-old female familial polyposis- last colonoscopy 2017- adenomatous polyp- will repeat colonoscopy in the fall- for [address] Rogers- plan of care dependent on above Code(s): Z86.010 - Personal history of colon polyps Category: Medical Plan: Patient up-to-date with colonoscopy and last done in 2023 repeat/recall 3 to 4 years (6) Left breast mass: Comment: Ultrasound September.0 cm hypoechoic/isoechoic solid mass at 2 o'clock position at 11 cm from the nipple correlating with the mammographic finding on the MLO view. Suspicious findings. On ultrasound-guided core biopsy is recommended. Biopsy Septemberreast, left mass at 2 o'clock, biopsy: Benign-appearing spindle cell lesion. See comment. Comment: The differential includes a myofibroblastoma, myoid hamartoma and leiomyoma Code(s): N63.20 - Unspecified lump in the left breast, unspecified quadrant Category: Medical Plan: Spindle cell lesion benign has an ultrasound requested in 6 months Plan History of Present Illness The patient is a 43-year-old female presenting with a wellness check and follow- up on existing conditions including SVT, PCOS, hypercholesterolemia, asthma, and a recent left breast mass. The patient has a history of supraventricular tachycardia (SVT) and polycystic ovary syndrome (PCOS). She has been managing these conditions with medication and lifestyle modifications. The patient also has a history of hypercholesterolemia and asthma, which are being managed with medication. She reports using an inhaler as needed for asthma symptoms. Recently, a left breast mass was identified, and the patient was advised to undergo a biopsy. The biopsy revealed a benign spindle cell lesion, and follow- up is recommended in six months. The patient has a history of an abdominal adenomatous polyp of the colon, with the last colonoscopy performed in August 2023. She is up to date with her colonoscopy screenings, with the next one recommended in three to four years. The patient denies any new diagnoses or surgeries since the last visit. She has allergies to penicillin and doxycycline. Health Maintenance - Colonoscopy up to date, next recommended in 3-4 years - Follow-up for benign spindle cell lesion in 6 months - Blood work normal, including blood count, electrolytes, renal function, and liver function - Cholesterol test due in three months, fasting required - Vaccinations: Flu shot recommended in November Social History - Alcohol: Barely drinks, last consumed in August at a wedding - Smoking: Does not smoke, uses gummies for sleep - Exercise: Engages in walking and weight lifting, though has been slacking due to work commitments Review of Systems - General: Denies fever, dizziness, nausea, vomiting - Cardiovascular: Denies chest pain, reports palpitations with SVT - Respiratory: Denies dyspnea, reports asthma managed with inhaler - Gastrointestinal: Reports heartburn with certain foods, managed with Lansoprazole - Genitourinary: Reports frequent urination, especially at night - Neurological: Denies headaches, dizziness - Musculoskeletal: Denies new lumps or bumps, reports cramps due to menstruation - Allergic/Immunologic: Reports nasal congestion and drainage, managed with nasal spray Physical Exam General: Cooperative, healthy appearing, comfortable, no acute distress and well developed Orientation: Patient oriented x3 Limitations: No limitations Head: Normal to inspection Ears: Hearing grossly normal bilaterally, but patient reports occasional feeling of blockage and echoing in the head Nose: Normal external nose present, but patient reports increased nasal drainage and runny nose Face and sinus: Normal facial exam, but patient reports sinus issues and allergies Eyes: Appearance normal, both eyes and all related structures Neck: Normal visual inspection and Yes full ROM Respiratory: Normal respiratory effort and able to speak in complete sentences. Clear to auscultation bilaterally Cardiovascular: Regular rate and rhythm. Normal S1 and S2 GI: Normal to inspection. Soft to palpation and nontender Skin: No rashes or lesions noted Neuro: Patient oriented x3 Extremities: Normal to inspection Results - Labs: Normal blood count, electrolytes, renal function, liver function, and iron levels - Imaging: Benign spindle cell lesion identified on breast biopsy Plan Patient was informed and verbally consented to the use of an ambient scribe for clinic note documentation during this visit. 1. Supraventricular Tachycardia (Svt) The patient continues to manage SVT with medication and lifestyle modifications. 2. Polycystic Ovary Syndrome (Pcos) PCOS is being managed with medication and lifestyle changes. 3. Hypercholesterolemia The patient is advised to have a cholesterol test in three months, which will be a fasting test. 4. Asthma Asthma is managed with an inhaler as needed. 5. Left Breast Mass The left breast mass was biopsied, revealing a benign spindle cell lesion. Follow-up is recommended in six months. 6. Abdominal Adenomatous Polyp Of The Colon The patient is up to date with colonoscopy screenings, with the next one recommended in three to four years. Discussion Notes During the visit, we discussed the management of the patient's SVT and PCOS with ongoing medication and lifestyle modifications. We also reviewed the need for a follow-up cholesterol test in three months, which will be a fasting test. The patient was informed about the benign nature of the left breast mass and the recommended follow-up in six months. We confirmed that the patient is up to date with colonoscopy screenings, with the next one due in three to four years. Patient Instructions - Continue current medications and lifestyle modifications for SVT and PCOS. - Schedule a cholesterol test in three months, ensuring it is a fasting test. - Follow up on the left breast mass in six months. - Maintain regular colonoscopy screenings, with the next one in three to four years. - Consider getting a flu shot in November. Orders: Orders Comprehensive Met. Panel 3 Months R73.02 - Impaired glucose tolerance (oral) Vitamin B12 and Folate 3 Months R73.02 - Impaired glucose tolerance (oral) Hemoglobin A1c 3 Months R73.02 - Impaired glucose tolerance (oral) Complete Blood Count Auto Diff 3 Months R73.02 - Impaired glucose tolerance (oral) Free T4 (Free Thyroxine) 3 Months R73.02 - Impaired glucose tolerance (oral) Thyroid Stimulating Hormone 3 Months R73.02 - Impaired glucose tolerance (oral) Lipid Panel 3 Months E78.00 - Pure hypercholesterolemia, unspecified, R73.02 - Impaired glucose tolerance (oral) UA CC w/rflx Micro + Cult 3 Months R30.0 - Dysuria, R73.02 - Impaired glucose tolerance (oral)
[2024-11-12 16:02] VITALS: BP 118/72; PULSE 69; O2SAT 99; BMI 25.5
== END 2024-11-12 17:10 | disposition home or self-care (01) ==
LOC: HO.HMCH 15:57
PROVIDERS: PCP Internal Medicine; Visit Provider Internal Medicine
DX: Z00.00 Encounter for general adult medical examination without abnormal findings (principal); E78.1 Pure hyperglyceridemia; R73.02 Impaired glucose tolerance (oral); K21.9 Gastro-esophageal reflux disease without esophagitis; Z86.0100 Personal history of colon polyps, unspecified; N63.20 Unspecified lump in the left breast, unspecified quadrant